=== PATIENT | female | born 1965 | race Caucasian/White ===

== ENCOUNTER 2021-07-16 13:08 | Emergency (ER) | payer MEDICARE, MEDICAID, SELFPAY ==
[2021-07-16 13:26] VITALS: BP 104/74; BP 120/60; PULSE 74; PULSE 77; RESP 18; TEMP 36.1; O2SAT 98; BMI 17.2
--- NOTE | 2021-07-16 13:35 | ED_ITS ---
HPI - General Adult General Chief complaint: General Medical Stated complaint: G-TUBE REPLACEMENT Time Seen by Provider: 07/16/21 13:27 Source: patient History of Present Illness HPI narrative: This is a 55-year-old female with a history of esophageal stricture, was had a G-tube in for some time. The G-tube in some fashion is nonfunctioning and needs to be replaced. The G-tube is still in her stomach but the patient stays that is not working. She states that not walk. She denies any abdominal pain, fever, chest pain, shortness of breath, abdominal pain. Review of Systems Constitutional: Constitutional: Reports as per HPI and Denies fever(s) Gastrointestinal: Gastrointestinal: Denies abdominal pain Neurologic: Denies Sensory deficit (Neuro) [facility] Past Medical History Medical History (Updated 07/16/21 @ 16:46 by Olvin Torres MD) G tube feedings Social History Social History Advance Directives: No Advance Directives Information Provided: Yes Physical Exam Vital Signs: Vital Signs: Last Vital Signs Temp 96.7 F L 07/16/21 16:00 Pulse 72 07/16/21 16:00 Resp 16 07/16/21 16:00 BP 96/62 07/16/21 16:00 Pulse Ox 96 07/16/21 16:00 BMI result Body Mass Index 17.2 Const: General: cooperative, no acute distress and alert Orientation/consciousness: patient oriented x3 HENMT: Head: Yes normal to inspection Eyes: General: appearance normal, both eyes and all related structures Eyelids: Yes eyelids normal Conjunctivae: conjunctivae normal Pupils: Equal, round and reactive pupils present Neck: Neck: Yes normal visual inspection and Yes supple Chest: Chest palpation & inspection: normal inspection of the chest Resp: Effort & Inspection: normal respiratory effort Auscultation: clear to auscultation bilaterally Cardio: Rate: regular rate Rhythm: regular rhythm Heart sounds: S1 normal heart sound present, S2 normal heart sound present, no gallops, no murmurs and no rubs GI: Palpation (GI): Soft to palpation, nontender and Other GI palpation findings present (Non-distended) Auscultation: normal bowel sounds Skin: General skin exam: no rashes or lesions noted Neuro: General: patient oriented x3, no focal motor deficits and CN's II-XI intact bilaterally Cranial nerves: Yes Equal, round and reactive pupils pre sent Cognition (Neuro): normal cognition Motor exam (neuro): 5/5 motor strength present throughout Sensory Exam: No Sensory deficit (Neuro) Extrem: General: Yes normal to inspection and Yes no pedal edema Psych: Appearance: grossly normal Affect: normal affect Procedures Procedure Narrative Procedure Narrative: The patient is 18 Gabonese PEG tube was removed after deflating the balloon, however the fluid that returned was not clear and was likely stomach contents. The tube was removed and the balloon appeared effective. Initially only a 20 Gabonese PEG tube was available. The stoma however was too tight for this to pass. A 16 Gabonese tube was found and was passed with only slight resistance. Confirmation of correct placement was made by insufflation of air and auscultating bubbling of air in the stomach. The patient tolerated the procedure well Discharge Plan Discharge Clinical Impression: Complaint associated with gastric tube Patient Disposition: Home, Self-Care Instructions: How to Use and Care for Your PEG Tube (ED) Additional Instructions: Return for any new or worsened symptoms such as abdominal pain, fluids not going into the gastric tube normally.
[2021-07-16 16:00] VITALS: BP 96/62; PULSE 72; RESP 16; TEMP 35.9; O2SAT 96
--- NOTE | 2021-07-16 17:00 | PC.NURSE ---
#16 g tube placed by , # 18 not avaiklable, pt tolerated well,
[2021-07-16 17:56] VITALS: BP 130/74; PULSE 74; RESP 16; TEMP 36.6; O2SAT 99
== END 2021-07-17 04:25 | disposition home or self-care (01) ==
PROVIDERS: Emergency Provider Emergency Medicine
DX: K94.29 Other complications of gastrostomy (principal); Z79.899 Other long term (current) drug therapy
CPT/HCPCS: 99283; 99284

== ENCOUNTER 2021-09-07 00:26 | Emergency (ER) | payer MEDICARE, MEDICAID, SELFPAY ==
--- NOTE | ~2021-09-07 | XR_ITS ---
EXAMINATION: XR ABDOMEN KUB CLINICAL INDICATION: G-tube check COMPARISON: None TECHNIQUE: AP view of the abdomen. FINDINGS: Gastrostomy tube tip overlies the stomach. Contrast is present throughout the stomach and within a portion of the tubing, in keeping with tube tip location in the stomach. No extraluminal contrast is seen. Bowel gas pattern is nonobstructive. Moderate to large amount of stool is noted. Limited assessment for free air with supine positioning. Included lung bases appear well-aerated. Degenerative changes are noted in the spine. XR/XR KUB IMPRESSION: Findings consistent with gastrostomy tube tip location in the stomach.
[2021-09-07 00:39] VITALS: BP 101/61; BP 96/63; PULSE 66; PULSE 76; RESP 16; TEMP 36.7; O2SAT 95; BMI 39.0
--- NOTE | 2021-09-07 00:50 | ED_ITS ---
HPI - General Adult General Chief complaint: General Medical Stated complaint: Gtube replacement Time Seen by Provider: 09/07/21 00:47 Source: patient Mode of arrival: EMS Limitations: no limitations History of Present Illness HPI narrative: Patient's history of esophageal stricture only can drink liquids has a feeding tube which got clogged and had to be removed by the staff patient has G-tube feeding tube for last 3 years last change of feeding tube was 2 months ago Related Data Allergies Allergy/AdvReac Type Severity Reaction Status Date / Time Sulfa (Sulfonamide AdvReac Unknown Unknown Verified 09/07/21 00:44 Antibiotics) Review of Systems Verdana 4l Review of Systems: Yes all other systems are reviewed and Verdana 4d are negative [facility] Past Medical History Medical History G tube feedings Physical Exam Verdana 4l Vital Signs: Verdana 4d Verdana 4d Vital Signs: Verdana 4d Verdana 4Bd Last Vital Signs Verdana 4d Punch [employer] Setter New 4d Punch Press Setter New 4d Temp 98.1 F 09/07/21 00:39 Punch Press Setter New 4d Pulse 66 09/07/21 00:39 Punch Press Setter New 4d Resp 16 09/07/21 00:39 BP 101/61 09/07/21 00:39 Pulse Ox 95 09/07/21 00:39 BMI result Body Mass Index 39.0 Appearance: Alert. Oriented X3. No acute distress. ENT: Pharynx normal. Oral Mucosa moist Neck: Normal inspection. Neck supple. CVS: Normal heart rate and rhythm. Pulses normal. Respiratory: No respiratory distress. Equal air entry bilateral, no wheezing/rales/rhonchi Abdomen: Soft and nontender. Stoma for G-tube + Bowel sounds are present, Skin: Skin warm and dry. Normal skin color. Normal skin turgor. Neuro: Oriented X 3. Procedures Feeding Tube Replacement Type of Tube: gastrostomy Insertion Site Prior to Procedure: clean Tube Used for Reinsertion: other (G-tube 18 Polish) Polish Tube Size (F): 18 Verification of Placement: KUB and gastrografin injection Patient Tolerated Procedure: no complications Discharge Plan Discharge Clinical Impression: Gastrostomy tube obstruction Patient Disposition: er [facility] Instructions: How to Use and Care for Your PEG Tube (ED) Additional Instructions: Local care as advised Okay to use G-tube
[2021-09-07] MEDS: Diatrizoate Meglumine, Sodium 30 ML SOLUTION PO (01:12)
--- NOTE | 2021-09-07 02:53 | PC.NURSE ---
Patient waited for almost 45 minutes for an ambulance ride back to her nursing facility. Patient gtube fell out and a new gt tube place size 18. Xray confirms placement and patient tolerated the procedure well
== END 2021-09-07 02:57 ==
LOC: HO.ED 01:36
PROVIDERS: Emergency Provider Internal Medicine
DX: K94.23 Gastrostomy malfunction (principal)
CPT/HCPCS: 43762; 74018; 99283; 99284

== ENCOUNTER 2022-07-04 16:52 | Emergency (ER) | payer MEDICARE, MEDICAID, SELFPAY ==
--- NOTE | ~2022-07-04 | XR_ITS ---
EXAMINATION: XR ABDOMEN KUB CLINICAL INDICATION: G-tube replacement. COMPARISON: Abdomen 09/07/2021, 1:04 AM TECHNIQUE: AP view of the abdomen. 5:34 PM. Contrast administered through the G-tube prior radiograph. XR/XR abdomen 1V FINDINGS/IMPRESSION: G- tube catheter within the stomach. Contrast opacifies the stomach. No extravasation of contrast IMPRESSION: 1. G-tube catheter within the stomach. No extravasation of contrast. 2. Multiple loops of dilated small bowel are seen.
--- NOTE | 2022-07-04 17:10 | ED.GENADULT ---
HPI - General Adult General Stated complaint: G-TUBE ISSUE Time Seen by Provider: 07/04/22 17:14 Related Data Allergies Allergy/AdvReac Type Severity Reaction Status Date / Time Sulfa (Sulfonamide AdvReac Unknown Unknown Verified 09/07/21 00:44 Antibiotics) PMFSH Past Medical History Medical History G tube feedings Social History Social History Alcohol intake: unknown Patient Tobacco Use Status: Tobacco use Unknown
[2022-07-04 17:12] VITALS: BP 101/70; PULSE 84; RESP 18; TEMP 37.1; O2SAT 96; BMI 19.3
--- NOTE | 2022-07-04 17:50 | ED_ITS ---
HPI - General Adult General Chief complaint: General Medical Stated complaint: G-TUBE ISSUE Time Seen by Provider: 07/04/22 17:14 Source: patient and EMS Mode of arrival: EMS Limitations: physical limitation History of Present Illness HPI narrative: 56-year-old female residing [facility] presents to the emergency department by EMS for G-tube replacement he is now after her G-tube fell out. She has a past medical history of esophageal stricture and has a G-tube for nighttime feeds for over 3+ years. Patient brought old G-tube to emergency department for inspection. Appears to be intact although balloon is broken. She denies any recent physical complaints such as fever, chills, diarrhea, constipation, chest pain, shortness of breath, or recent illness. Onset (ago): hour(s) (1) Location: abdomen Related Data Allergies Allergy/AdvReac Type Severity Reaction Status Date / Time Sulfa (Sulfonamide AdvReac Unknown Unknown Verified 09/07/21 00:44 Antibiotics) Review of Systems Review of Systems: Yes all other systems are reviewed and are negative Constitutional: Constitutional: Reports no additional constitutional complaints, Denies chills and Denies fever(s) Eyes: Eyes: Reports no additional eye complaints and Denies change in vision ENT: Reports system reviewed and no additional complaints, except as documented, Reports Normal hearing present and Reports dysphagia (hx esophageal stricture, able to swallow fluids, not solid foods.) Cardiovascular: Cardiovascular: Reports no additional cardiovascular complaints, Denies chest pain and Denies dyspnea Respiratory: Respiratory: Reports no additional respiratory complaints, Denies cough and Denies dyspnea Gastrointestinal: Gastrointestinal: Reports no additional gastrointestinal complaints, Denies abdominal pain, Denies melena, Denies hematochezia, Denies change in stool character, Reports dysphagia (hx esophageal stricture, able to swallow fluids, not solid foods.), Denies diarrhea, Denies nausea and Denies vomiting Musculoskeletal: Musculoskeletal: Reports no additional musculoskeletal complaints Integumentary/Breasts: Skin/Breast: Reports system reviewed and no additional complaints, except as docu Neurologic: Reports system reviewed and no additional complaints, except as documented and Reports Normal hearing present [facility] Past Medical History Attestation statement: The following information was validated with the patient. Source: old records reviewed Medical History G tube feedings Social History Social History Alcohol intake: unknown Patient Tobacco Use Status: Tobacco use Unknown Advance Directives: No Advance Directives Information Provided: No Physical Exam ED Vital Signs: Vital Signs - 24 hr 07/04/22 17:12 Temperature 98.7 F Pulse Rate 84 Respiratory Rate 18 Blood Pressure 101/70 Pulse Oximetry 96 Oxygen Delivery Method Room Air BMI result Body Mass Index 19.3 Const General: cooperative, no acute distress, alert and awake Nutritional Appearance: average body habitus Orientation/consciousness: patient oriented x3 Limitations: physical limitations HENMT Head: Yes normal to inspection and Yes atraumatic Ears: hearing grossly normal bilaterally and external ears normal General nose exam: Normal external nose present Face and sinus: Yes normal facial exam Mouth: Normal oral and palatal mucosa present Eyes General: appearance normal, both eyes and all related structures Alignment and Position: alignment normal Periorbital: periorbital findings normal Eyelids: Yes eyelids normal Conjunctivae: conjunctivae normal Sclerae: sclerae normal Pupils: Equal, round and reactive pupils present EOM: EOMs intact bilaterally Neck Neck: Yes normal visual inspection and Yes full ROM Chest Chest palpation & inspection: normal inspection of the chest Resp Effort & Inspection: normal respiratory effort and able to speak in complete sentences Auscultation: clear to auscultation bilaterally Cardio Rate: regular rate Rhythm: regular rhythm GI Inspection: Yes other (G-tube stoma present) Palpation (GI): Soft to palpation and nontender Auscultation: normal bowel sounds Skin General skin exam: no rashes or lesions noted Neuro General: patient oriented x3 Cranial nerves: Yes Equal, round and reactive pupils present and Yes Normal hearing present Cognition (Neuro): normal cognition Extrem General: Yes normal to inspection and Yes capillary refill normal Psych Appearance: grossly normal Mental Status: mental status grossly normal Speech and movement: Normal speech and movement present Affect: normal affect Attitude: cooperative Procedures Procedure Narrative Procedure Narrative: G-tube replacement Abdominal stoma cleansed with Betadine. 18 fr. LEIGHA G-tube inserted with slight resistance. Balloon inflated to 7 mL with normal saline. Gastrografin injected into G-tube and abdominal x-ray completed. Patient tolerated without incident. Medical Decision Making MDM Narrative Medical decision making narrative: 56-year-old female presents from a long-term care facility for replacement of G- tube after fell earlier today. 18 fr. G-tube inserted without issue. Abdominal x-ray consistent with gastrostomy tube location in the stomach. G-tube okay for immediate use. Imaging Data Abdominal x-ray: My impression: G-tube tip correctly located in stomach. Radiologist's impression: EXAMINATION: XR ABDOMEN KUB CLINICAL INDICATION: G-tube check? COMPARISON: None? TECHNIQUE: AP view of the abdomen. FINDINGS: Gastrostomy tube tip overlies the stomach. Contrast is present throughout the stomach and within a portion of the tubing, in keeping with tube tip location in the stomach. No extraluminal contrast is seen. Bowel gas pattern is nonobstructive. Moderate to large amount of stool is noted. Limited assessment for free air with supine positioning. Included lung bases appear well-aerated. Degenerative changes are noted in the spine. XR/XR KUB IMPRESSION: Findings consistent with gastrostomy tube tip location in the stomach. ? Dictated By: PATRICIA MEI MD Signed By: <Electronically signed by PATRICIA MEI MD in OV> 09/07/21 0140 DD/ 0112 TD/TT:? Senior Budget Analyst: TH Discharge Plan Discharge Clinical Impression: PEG (percutaneous endoscopic gastrostomy) adjustment/replacement/removal Patient Disposition: Xfer LTC Instructions: How to Use and Care for Your PEG Tube (ED) Additional Instructions: 18 fr G-tube replaced today. Abdominal x-ray completed and G-tube cleared for immediate use. Print Language: Dominican
== END 2022-07-04 19:40 ==
PROVIDERS: Emergency Provider Internal Medicine; PCP Internal Medicine
DX: Z46.59 Encounter for fitting and adjustment of other gastrointestinal appliance and device (principal)
CPT/HCPCS: 43762; 74018; 99282; 99283; 99285

== ENCOUNTER 2023-03-11 23:11 | Emergency (ER) | payer MEDICARE, MEDICAID, SELFPAY ==
--- NOTE | ~2023-03-11 | XR_ITS ---
EXAMINATION: XR ABDOMEN KUB CLINICAL INDICATION: G-tube check COMPARISON: 07/04/2022 TECHNIQUE: AP view of the abdomen. FINDINGS: Gastrostomy tube projects over the gastric body. Contrast injected through the gastrostomy tube opacifies the stomach and collects in the gastric fundus. No extraluminal contrast is identified. Nonobstructive bowel gas pattern. Moderate stool throughout the left colon. No acute osseous abnormalities. XR/XR KUB IMPRESSION: * Gastrostomy tube projects over the gastric body. No evidence of contrast extravasation * Nonobstructive bowel gas pattern. * Moderate stool throughout the left colon.
[2023-03-11 23:16] VITALS: BP 110/74; PULSE 91; O2SAT 96
[2023-03-11 23:42] VITALS: BP 110/74; PULSE 91; RESP 16; O2SAT 96; BMI 20.5
--- NOTE | 2023-03-11 23:53 | ED_ITS ---
HPI - General Adult General Chief complaint: Abdominal Pain Stated complaint: g tube Time Seen by Provider: 03/11/23 23:53 Source: patient, EMS and RN notes reviewed Mode of arrival: EMS Limitations: no limitations History of Present Illness HPI narrative: Patient with long-standing G-tube came from half-way as it was clock was placed about more than a month ago no vomiting no fever no abdominal distention Related Data Allergies Allergy/AdvReac Type Severity Reaction Status Date / Time Sulfa (Sulfonamide AdvReac Unknown Unknown Verified 09/07/21 00:44 Antibiotics) Review of Systems Review of Systems: Yes all other systems are reviewed and are negative [facility] Past Medical History Medical History G tube feedings Social History Social History Alcohol intake: unknown Patient Tobacco Use Status: Tobacco use Unknown Advance Directives: No Advance Directives Information Provided: Yes Physical Exam ED Vital Signs: Vital Signs - 24 hr 03/11/23 23:42 Pulse Rate 91 Respiratory Rate 16 Blood Pressure 110/74 Pulse Oximetry 96 Oxygen Delivery Method Room Air BMI result Body Mass Index 20.5 Appearance: Alert. Oriented X3. No acute distress. ENT: Pharynx normal. Oral Mucosa moist Neck: Normal inspection. Neck supple. CVS: Normal heart rate and rhythm. Pulses normal. Respiratory: No respiratory distress. Equal air entry bilateral, Abdomen: Soft and nontender. G-tube in place clogged, Bowel sounds are present, no mass palpable, no CVA tenderness Skin: Skin warm and dry. Normal skin color. Normal skin turgor. Extremities: No lower extremity edema. No calf tenderness Neuro: Oriented X 3. No motor deficit. Medications Administered Discontinued Medications Generic Name Dose Route Start Last Admin Trade Name Freq PRN Reason Stop Dose Admin Diatrizoate Meglum/Diatrizoate Sod 30 ml 03/12/23 01:06 03/12/23 01:06 Diatrizoate Meglumine, Sodium 30 Ml Solution PO 03/12/23 01:07 30 ml ONCE ONE Administration Procedures Feeding Tube Replacement Type of Tube: gastrostomy Insertion Site Prior to Procedure: clean Tube Used for Reinsertion: Bard Guamanian Tube Size (F): 22 Balloon size (mL): 10 Verification of Placement: KUB and gastrografin injection Tube Secured by: tape/dressing Patient Tolerated Procedure: well Medical Decision Making Medical Decision Making MDM Narrative: 22 Guamanian G-tube was replaced confirmed by KUB x-ray which admission back to nursing Discharge Plan Discharge Clinical Impression: G tube feedings Patient Disposition: Xfer SNF Transfer Details: 22 Guamanian G-tube was placed and is okay to use Instructions: How to Use and Care for Your PEG Tube (ED) Additional Instructions: Okay to use G-tube
[2023-03-12] MEDS: Diatrizoate Meglumine, Sodium 30 ML SOLUTION PO (01:06)
--- NOTE | 2023-03-12 01:22 | MHC.EDTECH ---
call out to eliel at 0121 to book transport for pt back to SNF, estimated eta given was 0330
--- NOTE | 2023-03-12 02:11 | PC.NURSE ---
Gave report to [facility], pt waiting for transport at this time. ETA 3:30
== END 2023-03-12 03:43 | disposition skilled nursing facility (03) ==
PROVIDERS: Emergency Provider Internal Medicine
DX: K94.23 Gastrostomy malfunction (principal)
CPT/HCPCS: 74018; 99284

== ENCOUNTER 2023-03-12 22:49 | Inpatient (IN) | payer MEDICARE, MEDICAID, SELFPAY ==
--- NOTE | ~2023-03-12 | FL_ITS ---
EXAMINATION: FL BARIUM SWALLOW CLINICAL INFORMATION: Dysphagia. Esophageal stricture. COMPARISON: Previous chest CT from earlier the same day TECHNIQUE: Limited single contrast barium swallow was performed using thin and thick barium with the patient in semiupright position. Barium was also injected through the G-tube. Fluoroscopy time: 1.1 minutes DAP: 2.8 Gycm2 Images: 12 FINDINGS: There is severe mucosal irregularity of the proximal and mid esophagus. The proximal and mid thoracic esophagus is dilated. The distal thoracic esophagus appears narrowed questionable for a stricture. Exam is limited as the patient aspirated into the left lower lobe while drinking liquid barium and exam was discontinued. There is underfilling of the proximal stomach and is difficult to exclude a mass in this region. The G-tube was injected with barium. The G tube is in the distal stomach. No leak. FL/FL barium swallow IMPRESSION: Limited exam. Aspiration. Mucosal irregularity of the proximal and mid thoracic esophagus and dilatation. Stricture of the distal thoracic esophagus. Underfilling of the proximal stomach. It is difficult to exclude a proximal stomach mass. G-tube in the distal stomach.
--- NOTE | ~2023-03-12 | CT_ITS ---
EXAMINATION CT CHEST, ABDOMEN AND PELVIS WITH CONTRAST CLINICAL INFORMATION: Esophageal obstruction. Nausea and vomiting. Epigastric pain. COMPARISON: None. TECHNIQUE: Multidetector volumetric CT imaging of the chest, abdomen and pelvis was obtained after the administration of 85 mL of intravenous Omnipaque 350 without immediate adverse reactions. Coronal and sagittal reformats were reviewed. This CT examination was performed using dose optimization techniques as appropriate, variously including the following: *Automated exposure control *Adjustment of mA and/or kV according to patient size (this includes techniques or standardized protocols for targeted exams where dose is matched to indication/reason for exam; i.e. extremities or head) *Use of iterative reconstruction technique DLP: 536 mGy-cm. FINDINGS: CHEST LUNGS/PLEURA: Mild emphysema. Diffuse mild cylindrical bronchiectasis. There are upper lobe predominant patchy and in some cases nodular opacities bilaterally. There is no pleural effusion. No pleural mass or thickening. MEDIASTINUM/DAVINA: Normal heart size. No pericardial effusion. Great vessels normal caliber. Coronary calcifications present. No mediastinal or hilar lymphadenopathy. Small sliding-type hiatal hernia, above which the esophagus shows marked submucosal edema and accompanying mucosal hyperemia throughout its distal third. The proximal two thirds of the esophagus is patulous/moderately dilated. CHEST WALL/AXILLA: Unremarkable. ABDOMEN/PELVIS HEPATOBILIARY: Liver normal in size, contour and morphology. No suspicious lesions. No intra or extrahepatic biliary dilation. Gallbladder unremarkable. PANCREAS: Unremarkable. SPLEEN: Unremarkable. ADRENAL GLANDS: Unremarkable. KIDNEYS, URETERS AND BLADDER: Kidneys normal in size, axis and morphology demonstrating symmetric enhancement. No hydronephrosis or urinary calculi. Ureters normal in course and caliber. Bladder grossly unremarkable.. GASTROINTESTINAL TRACT: Gastrostomy tube within the gastric antrum. No intestinal obstruction or inflammation. Normal appendix. Previously administered contrast present throughout the colon. PELVIC VISCERA: Uterus and adnexa unremarkable. LYMPH NODES: No lymphadenopathy. PERITONEUM/BODY WALL: Unremarkable. VASCULAR STRUCTURES: Aorta is atherosclerotic but normal caliber. Patent vascular structures. OSSEOUS STRUCTURES No acute or suspicious osseous abnormalities. Mild retrolisthesis of L1 over L2 with accompanying near complete obliteration of the disc space and diffuse disc bulge. This leads to at least moderate bilateral foraminal narrowing at L1-L2, worse on the right. Mild loss of disc space height at L5-S1 accompanied by diffuse disc bulge. Moderate facet arthropathy throughout the lumbar spine. CT/CT abdomen pelvis w IV con IMPRESSION: CHEST: * Small sliding-type hiatal hernia with marked submucosal edema and mucosal hyperemia throughout the distal third of the esophagus compatible with severe esophagitis. This severe edema within the distal esophagus may be resulting in partial obstruction. An esophageal stricture could also be contributing. Recommend GI consultation and esophagram for further evaluation. * Upper lobe predominant patchy and in some cases nodular airspace opacities bilaterally, likely infectious/inflammatory in etiology and of indeterminate activity / chronology. Given the somewhat nodular appearance of some of the opacities, consider a follow-up CT chest in 3-6 months for reevaluation. * Mild emphysema and diffuse mild cylindrical bronchiectasis/chronic airways disease. ABDOMEN/PELVIS: * No acute findings within the abdomen or pelvis. * Gastrostomy tube within the gastric antrum. * No intestinal obstruction or inflammation. * Coronary calcifications. * Degenerative changes of the lumbar spine as described, most pronounced at L1-L2 where there is at least moderate bilateral foraminal narrowing, worse on the right.
--- NOTE | 2023-03-12 23:06 | ECG_ITS ---
Test Reason : HYPERTENSION Blood Pressure : / mmHG Vent. Rate : 102 BPM Atrial Rate : 102 BPM P-R Int : 120 ms QRS Dur : 074 ms QT Int : 354 ms P-R-T Axes : 066 241 048 degrees QTc Int : 461 ms Sinus tachycardia Right superior axis deviation Nonspecific ST changes Abnormal ECG No previous ECGs available Referred By: Susan Gale Electronically Signed By:Ambrose Boggs
[2023-03-12 23:20] VITALS: BP 135/99; PULSE 90; RESP 14; TEMP 36.9; O2SAT 97
[2023-03-12 23:21] VITALS: BP 110/78; PULSE 110; O2SAT 99; BMI 21.0
--- NOTE | 2023-03-12 23:40 | ED.GENADULT ---
HPI - General Adult General Chief complaint: General Medical Stated complaint: vomiting Time Seen by Provider: 03/12/23 23:05 Source: patient, EMS and other Mode of arrival: EMS History of Present Illness HPI narrative: 57-year-old female who arrives via EMS from [facility] reporting hyperemesis for over a day now and then noted to have black tarry emesis. Patient does have a G-tube in place and states that sometimes she gets and informed me that she is able to have liquids, however when I reviewed the paperwork from the facility patient has a noted esophageal obstruction. Related Data Allergies Allergy/AdvReac Type Severity Reaction Status Date / Time Sulfa (Sulfonamide AdvReac Unknown Unknown Verified 09/07/21 00:44 Antibiotics) Review of Systems Review of Systems: Pertinent positives and negatives as stated in [facility] Past Medical History Source: nursing notes reviewed Medical History G tube feedings Social History Social History Alcohol intake: never Patient Tobacco Use Status: Tobacco use Unknown Smoked in Last 30 Days: No Use of substances other than those prescribed or required for medical reasons: No Advance Directives: No Advance Directives Information Provided: Yes Patient : No Physical Exam ED Vital Signs: Vital Signs - 24 hr 03/12/23 23:20 03/13/23 02:28 Temperature 98.4 F Pulse Rate 90 69 Respiratory Rate 14 12 Blood Pressure 135/99 H 143/70 H Pulse Oximetry 97 99 Oxygen Delivery Method Room Air Room Air BMI result Body Mass Index 21.0 VITAL SIGNS: Reviewed. GENERAL: Cachectic, chronically ill, in no acute distress. HEAD: Normocephalic/atraumatic EYES: PERRLA, EOMI EARS: Ext canals without abnormality NOSE: Nares patent bilateral OROPHARYNX: no oral lesions noted, posterior pharynx clear NECK: Supple, no adenopathy LUNGS: Normal breath sounds. No adventitious sounds or accessory muscle use. SpO2<97> CARDIOVASCULAR: Regular rate and rhythm without noted murmurs ABDOMEN: Soft, non-tender, non-distended with bowel sounds, G-tube noted to epigastric. MUSCULOSKELETAL: No tenderness, deformities, or effusions noted on gross inspection. EXTREMITIES: No cyanosis, clubbing or edema. SKIN: Inspection of the skin reveals no rashes NEUROLOGIC: Alert and oriented x 3. Left-sided residual deficits at baseline Medications Administered Discontinued Medications Generic Name Dose Route Start Last Admin Trade Name Amada PRN Reason Stop Dose Admin Sodium Chloride 1,000 mls @ 999 mls/hr 03/13/23 01:00 03/13/23 01:44 Ns IV 03/13/23 02:00 999 mls/hr .Q1H1M DEANNA Administration Piperacillin Sod/Tazobactam 50 mls @ 100 mls/hr 03/13/23 00:54 03/13/23 02:34 Sod 3.375 gm/ Sodium Chloride IV 03/13/23 01:23 Infused ONCE ONE Infusion Iohexol 85 ml 03/13/23 01:01 03/13/23 01:02 Iohexol 350 Mg/Ml 100 Ml Infus..Btl IV 03/13/23 01:02 85 ml ONCE ONE Administration Ondansetron HCl 4 mg 03/13/23 00:38 03/13/23 00:43 Ondansetron Hcl 4 Mg/2 Ml Vial IVPUSH 03/13/23 00:39 4 mg ONCE ONE Administration Pantoprazole Sodium 80 mg 03/13/23 02:03 03/13/23 02:35 Pantoprazole Sodium 40 Mg/10 Ml Vial IVPUSH 03/13/23 02:04 80 mg ONCE ONE Administration Medical Decision Making Medical Decision Making MDM Narrative: 57-year-old female with history and clinical presentation of inappropriate consumption of oral intake that is resulted in multiple episodes of nausea and vomiting likely secondary to known esophageal obstruction. There is possibility esophageal and/or gastric irritation will evaluate for possible upper GI bleed. 0130: I suspect infection, lactic acid/blood cultures/Zosyn ordered. I reviewed all investigations to include requested imaging studies from [facility]. Hematologic indices are significant for leukocytosis and left shift but no anemia and there is a thrombocytosis likely reflective of inflammatory process ongoing. Given the fact the patient has continued to engage in oral intake suspect that these are aspiration in nature. Coagulation studies are grossly within normal limits. Chemistry indices are negative for electrolyte abnormalities and there is no JUDY, alkaline phosphatase is mildly elevated but otherwise troponin is undetectable. Patient received 80 mg of Protonix, stool guaiac is negative, she continues to have vomiting of dark colored liquid but is not tachycardic or hypotensive. Urinalysis is negative for UTI. CT chest bilateral upper lobe opacities, otherwise my interpretation is in agreement with radiology's impression. CT abdomen/pelvis no evidence for obstruction otherwise my interpretation is in agreement with radiology's impression. 0252: I discussed case with inpatient hospitalist who accepts admission. Differential Diagnosis Differential Diagnoses: The differential diagnosis associated with the presentation includes Please see the discussion above Admission/Observation Consideration of admission/observation: Escalation of care including admission/observation considered Please see the discussion above Consult Healthcare Provider Management of the patient was discussed with: Hospitalist Please see the discussion above Lab Data MDM Lab Attestation statement: I reviewed the patient's lab results. Please see the discussion above 03/13/23 00:02 03/13/23 00:02 Labs: Lab Results 03/13/23 03/13/23 03/13/23 Range/Units 00:02 00:02 00:02 WBC 18.0 H (4.8-10.8) X10*3/uL RBC 5.15 (4.20-5.50) X10*6/uL Hgb 13.1 (12.0-16.0) g/dl Hct 41.2 (37.0-47.0) % MCV 80.0 (80.0-98.0) fL MCH 25.4 L (27.0-33.0) pg MCHC 31.8 (31.0-35.0) g/dl RDW 17.4 H (11.0-16.0) % Plt Count 633 H (160-400) X10*3/uL MPV 9.7 (9.4-12.3) fL Immature Gran % (Auto) 0.4 (0.0-0.4) % Neut % (Auto) 88.4 H (45-73) % Lymph % (Auto) 7.2 L (20-40) % [place] % (Auto) 3.7 (2-11) % Eos % (Auto) 0.0 (0-4) % Baso % (Auto) 0.3 (0-2) % Lymph # (Auto) 1.3 (1.2-4.9) X10*3/uL [place] # (Auto) 0.7 (0.1-1.2) X10*3/uL Eos # (Auto) 0.0 (0.0-0.4) X10*3/uL Baso # (Auto) 0.1 (0.0-0.2) X10*3/uL Abs Immat Gran (auto) 0.08 H (0.00-0.03) X10*3/uL Absolute Neuts (auto) 15.9 H (2.0-8.3) x10*3/uL Absolute Nucleated RBC 0.000 (0.0-0.012) X10*3/uL Nucleated RBC % (auto) 0.0 (0.0-0.2) /100WBC PT (11.1-13.3) SEC INR (0.9-1.1) Sodium 145 (135-145) mmol/L Potassium 3.9 (3.3-5.1) mmol/L Chloride 106 (96-108) mmol/L Carbon Dioxide 22 (22-29) mmol/L Anion Gap 21 H (12-20) BUN 19 H (9-16) mg/dL Creatinine 0.78 (0.5-1.4) mg/dL Estim Creat Clear Calc 61.4 Estimated GFR > 60 Random Glucose 131 H (60-115) mg/dL Lactic Acid (0.5-2.0) mmol/L Calcium 10.4 H (8.4-10.2) mg/dL Total Bilirubin 0.2 (0.0-1.0) mg/dL AST 27 (5-31) U/L ALT 23 (0-31) U/L Alkaline Phosphatase 135 H (39-117) U/L Troponin I High Sens < 2.7 (<3.5-17.0) ng/L Total Protein 8.3 H (6.5-8.0) g/dL Albumin 4.7 (3.5-5.0) g/dL Urine Color Urine Appearance Urine pH (5.0-9.0) Ur Specific Peculiar (1.005-1.025) Urine Protein (Neg-Trace) mg/dL Urine Glucose (UA) (Negative) mg/dL Urine Ketones (Negative) mg/dL Urine Blood (Negative) Urine Nitrite (Negative) Ur Leukocyte Esterase (Negative) Stool Occult Blood (NEGATIVE) 03/13/23 03/13/23 03/13/23 Range/Units 00:02 01:38 02:16 WBC (4.8-10.8) X10*3/uL RBC (4.20-5.50) X10*6/uL Hgb (12.0-16.0) g/dl Hct (37.0-47.0) % MCV (80.0-98.0) fL MCH (27.0-33.0) pg MCHC (31.0-35.0) g/dl RDW (11.0-16.0) % Plt Count (160-400) X10*3/uL MPV (9.4-12.3) fL Immature Gran % (Auto) (0.0-0.4) % Neut % (Auto) (45-73) % Lymph % (Auto) (20-40) % [place] % (Auto) (2-11) % Eos % (Auto) (0-4) % Baso % (Auto) (0-2) % Lymph # (Auto) (1.2-4.9) X10*3/uL [place] # (Auto) (0.1-1.2) X10*3/uL Eos # (Auto) (0.0-0.4) X10*3/uL Baso # (Auto) (0.0-0.2) X10*3/uL Abs Immat Gran (auto) (0.00-0.03) X10*3/uL Absolute Neuts (auto) (2.0-8.3) x10*3/uL Absolute Nucleated RBC (0.0-0.012) X10*3/uL Nucleated RBC % (auto) (0.0-0.2) /100WBC PT 12.4 (11.1-13.3) SEC INR 1.0 (0.9-1.1) Sodium (135-145) mmol/L Potassium (3.3-5.1) mmol/L Chloride (96-108) mmol/L Carbon Dioxide (22-29) mmol/L Anion Gap (12-20) BUN (9-16) mg/dL Creatinine (0.5-1.4) mg/dL Estim Creat Clear Calc Estimated GFR Random Glucose (60-115) mg/dL Lactic Acid 1.6 (0.5-2.0) mmol/L Calcium (8.4-10.2) mg/dL Total Bilirubin (0.0-1.0) mg/dL AST (5-31) U/L ALT (0-31) U/L Alkaline Phosphatase (39-117) U/L Troponin I High Sens (<3.5-17.0) ng/L Total Protein (6.5-8.0) g/dL Albumin (3.5-5.0) g/dL Urine Color Urine Appearance Urine pH (5.0-9.0) Ur Specific Peculiar (1.005-1.025) Urine Protein (Neg-Trace) mg/dL Urine Glucose (UA) (Negative) mg/dL Urine Ketones (Negative) mg/dL Urine Blood (Negative) Urine Nitrite (Negative) Ur Leukocyte Esterase (Negative) Stool Occult Blood NEGATIVE (NEGATIVE) 03/13/23 Range/Units 02:28 WBC (4.8-10.8) X10*3/uL RBC (4.20-5.50) X10*6/uL Hgb (12.0-16.0) g/dl Hct (37.0-47.0) % MCV (80.0-98.0) fL MCH (27.0-33.0) pg MCHC (31.0-35.0) g/dl RDW (11.0-16.0) % Plt Count (160-400) X10*3/uL MPV (9.4-12.3) fL Immature Gran % (Auto) (0.0-0.4) % Neut % (Auto) (45-73) % Lymph % (Auto) (20-40) % [place] % (Auto) (2-11) % Eos % (Auto) (0-4) % Baso % (Auto) (0-2) % Lymph # (Auto) (1.2-4.9) X10*3/uL [place] # (Auto) (0.1-1.2) X10*3/uL Eos # (Auto) (0.0-0.4) X10*3/uL Baso # (Auto) (0.0-0.2) X10*3/uL Abs Immat Gran (auto) (0.00-0.03) X10*3/uL Absolute Neuts (auto) (2.0-8.3) x10*3/uL Absolute Nucleated RBC (0.0-0.012) X10*3/uL Nucleated RBC % (auto) (0.0-0.2) /100WBC PT (11.1-13.3) SEC INR (0.9-1.1) Sodium (135-145) mmol/L Potassium (3.3-5.1) mmol/L Chloride (96-108) mmol/L Carbon Dioxide (22-29) mmol/L Anion Gap (12-20) BUN (9-16) mg/dL Creatinine (0.5-1.4) mg/dL Estim Creat Clear Calc Estimated GFR Random Glucose (60-115) mg/dL Lactic Acid (0.5-2.0) mmol/L Calcium (8.4-10.2) mg/dL Total Bilirubin (0.0-1.0) mg/dL AST (5-31) U/L ALT (0-31) U/L Alkaline Phosphatase (39-117) U/L Troponin I High Sens (<3.5-17.0) ng/L Total Protein (6.5-8.0) g/dL Albumin (3.5-5.0) g/dL Urine Color Yellow Urine Appearance Turbid Urine pH 8.5 (5.0-9.0) Ur Specific Peculiar >= 1.030 H (1.005-1.025) Urine Protein 30 (1+) H (Neg-Trace) mg/dL Urine Glucose (UA) Negative (Negative) mg/dL Urine Ketones Negative (Negative) mg/dL Urine Blood Negative (Negative) Urine Nitrite Negative (Negative) Ur Leukocyte Esterase Negative (Negative) Stool Occult Blood (NEGATIVE) Independent Interpretation I performed an independent interpretation of an: EKG Interpretation: Sinus tachycardia, HR-102, no STEMI, IL/QRS/QTC is within normal limits. Radiology Impression Discussion of test interpretation with radiology: I have reviewed the radiologist's reading. Radiologist Impression: Please see the discussion above External Record Review External record reviewed: Other Imaging records from [facility] Critical Care Time Critical Care Time Critical Care Time: Yes Total Critical Care Time: 30 Attestation: I personally attest to this time spent taking care of the patient. Discharge Plan Discharge Clinical Impression: Aspiration pneumonia, Mass of esophagus Patient Disposition: Admitted As Inpatient
[2023-03-13 00:07] LABS: MANUAL DIFF FLAG NO
[2023-03-13 00:08] LABS: Basophils Absolute Auto 0.1 X10*3/uL (0.0-0.2); Basophils Percent Auto 0.3 % (0-2); Hematocrit 41.2 % (37.0-47.0); Hemoglobin 13.1 g/dl (12.0-16.0); Imm Gran Abs Auto 0.08 X10*3/uL (0.00-0.03); Imm Gran Pct Auto 0.4 % (0.0-0.4); Lymphocytes Absolute Auto 1.3 X10*3/uL (1.2-4.9); Lymphocytes Percent Auto 7.2 % (20-40); Mean Corpuscular HGB Conc 31.8 g/dl (31.0-35.0); Mean Corpuscular Hemoglobin 25.4 pg (27.0-33.0); Mean Platelet Volume 9.7 fL (9.4-12.3); Monocytes Absolute Auto 0.7 X10*3/uL (0.1-1.2); Monocytes Percent Auto 3.7 % (2-11); Neutrophils Absolute Auto 15.9 x10*3/uL (2.0-8.3); Neutrophils Percent Auto 88.4 % (45-73); Platelet Count 633 X10*3/uL (160-400); Red Blood Count 5.15 X10*6/uL (4.20-5.50); Red Cell Distribution Width 17.4 % (11.0-16.0)
[2023-03-13 00:17] LABS: Prothrombin Time 12.4 SEC (11.1-13.3)
[2023-03-13 00:24] LABS: Alanine Aminotransferase 23 U/L (0-31); Albumin Level 4.7 g/dL (3.5-5.0); Alkaline Phosphatase 135 U/L (39-117); Anion Gap 21 (12-20); Aspartate Amino Transferase 27 U/L (5-31); Bilirubin Total 0.2 mg/dL (0.0-1.0); Blood Urea Nitrogen 19 mg/dL (9-16); Calcium 10.4 mg/dL (8.4-10.2); Carbon Dioxide 22 mmol/L (22-29); Chloride 106 mmol/L (96-108); Creatinine Clr Calc Pharmacy 61.4; Estimated Glomerular Filt Rate > 60; Glucose Random 131 mg/dL (60-115); Potassium 3.9 mmol/L (3.3-5.1); Sodium 145 mmol/L (135-145); Total Protein 8.3 g/dL (6.5-8.0)
[2023-03-13 00:31] LABS: Troponin-I High Sensitivity < 2.7 ng/L (<3.5-17.0)
[2023-03-13] MEDS: ondansetron HCL 4 MG/2 ML VIAL IVPUSH ×3 (00:43→21:05)
[2023-03-13] MEDS: iohexoL 350 MG/ML 100 ML INFUS..BTL 85 ML IV (01:02)
[2023-03-13] MEDS: 0.9 % Sodium Chloride 1,000 ML 999 ML IV (01:44)
[2023-03-13] MEDS: Piperacillin Sodium/Tazobactam 3.375 GM in 0.9 % Sodium Chloride 50 ML IV (01:44)
[2023-03-13 01:56] LABS: Lactic Acid 1.6 mmol/L (0.5-2.0)
[2023-03-13 02:21] LABS: OBS Int Ctl Valid YES; OBS1 NEGATIVE (NEGATIVE)
[2023-03-13 02:28] VITALS: BP 143/70; PULSE 69; RESP 12; O2SAT 99
[2023-03-13 02:35] LABS: Appearance Urine Turbid; Color Urine Yellow; Glucose Urine UA Negative (Negative); Leukocyte Esterase Urine Negative (Negative); Nitrite Urine Negative (Negative); PH 8.5 (5.0-9.0); Specific Gravity - Urine >= 1.030 (1.005-1.025); UMIC TRIGGER UACC YES; Urine Blood Negative (Negative); Urine Ketones Negative (Negative); Urine Protein 30 (1+) mg/dL (Neg-Trace)
[2023-03-13] MEDS: Pantoprazole Sodium 40 MG/10 ML VIAL 80 MG IVPUSH (02:35)
[2023-03-13 02:45] LABS: Bacteria Urine None Seen (None Seen); Hyaline Casts Urine 0-2 /LPF (0-2); Squamous Epithelial Cell Urine 0-2 /HPF (0-2); WBC Urine 0-5 /HPF (0-5)
--- NOTE | 2023-03-13 03:17 | PM.IMHP ---
History of Present Illness Date of Service: 03/13/23 Chief Complaint: Vomiting This is a 57-year-old female with pertinent history of CVA with residual left-sided hemiparesis, dysphagia due to CVA, gastroesophageal reflux disease, mood disorder who was sent to the emergency department for evaluation of multiple episodes of vomiting. Patient states she had multiple episodes of vomiting on the day of presentation, too many to count. Patient states her last few episodes were black in color. Denies shahzad blood in vomitus. She denies fever, chills, cough. Does not take anything by mouth. Has a G-tube for feeds. No chest discomfort, palpitations, shortness of breath, abdominal pain, changes in urinary or bowel habits. In the emergency department, imaging with severe esophagitis with possible esophageal stricture Review of Systems Constitutional: Constitutional: Reports no additional constitutional complaints Cardiovascular: Cardiovascular: Reports no additional cardiovascular complaints Respiratory: Respiratory: Reports no additional respiratory complaints Gastrointestinal: Gastrointestinal: Reports vomiting Genitourinary: Genitourinary: Reports no additional female genitourinary complaints [facility] Medical History CVA (cerebral vascular accident) Dysphagia G tube feedings GERD (gastroesophageal reflux disease) Hemiparesis affecting left side as late effect of cerebrovascular accident Mood disorder Pertinent family history: No family history of early CAD Social History Alcohol intake: never Patient Tobacco Use Status: Tobacco use Unknown Smoked in Last 30 Days: No Use of substances other than those prescribed or required for medical reasons: No Advance Directives: No Advance Directives Information Provided: Yes Patient : No Meds Allergies Allergy/AdvReac Type Severity Reaction Status Date / Time Sulfa (Sulfonamide AdvReac Unknown Unknown Verified 09/07/21 00:44 Antibiotics) Active Medications: Current Medications Vancomycin HCl 1,250 mg/ (Sodium Chloride) 250 mls @ 166.667 mls/hr IV ONCE ONE; Protocol Stop: 03/13/23 04:44 Pharmacy Consult (Consult Rx Vancomycin Dosing) 1 each MISCELLANE DAILY PRN PRN Reason: Consult order Physical Exam Vital Signs and Narrative: Vital Signs: Last Vital Signs Temp 98.4 F 03/12/23 23:20 Pulse 69 03/13/23 02:28 Resp 12 03/13/23 02:28 BP 143/70 H 03/13/23 02:28 Pulse Ox 99 03/13/23 02:28 O2 Del Method Room Air 03/13/23 02:28 BMI result Body Mass Index 21.0 Middle-aged female lying in bed in no distress Neck supple Regular rate and rhythm, S1-S2 heard Decreased breath sounds at bases with mild crackles Abdomen soft nontender, no guarding, no rigidity, G-tube in place Patient is awake, alert and oriented to self, place, time and person ; left-sided hemiparesis present Psych: Normal mood Results Labs 03/13/23 00:02 03/13/23 00:02 Labs: Laboratory Results - last 24 hr 03/13/23 03/13/23 03/13/23 00:02 00:02 00:02 MCV 80.0 MCH 25.4 L MCHC 31.8 RDW 17.4 H Plt Count 633 H MPV 9.7 Immature Gran % (Auto) 0.4 Neut % (Auto) 88.4 H Lymph % (Auto) 7.2 L Petroleum % (Auto) 3.7 Eos % (Auto) 0.0 Baso % (Auto) 0.3 Lymph # (Auto) 1.3 Petroleum # (Auto) 0.7 Eos # (Auto) 0.0 Baso # (Auto) 0.1 Abs Immat Gran (auto) 0.08 H Absolute Neuts (auto) 15.9 H Absolute Nucleated RBC 0.000 Nucleated RBC % (auto) 0.0 PT 12.4 INR 1.0 Anion Gap 21 H Estim Creat Clear Calc 61.4 Estimated GFR > 60 Random Glucose 131 H Lactic Acid Calcium 10.4 H Total Bilirubin 0.2 AST 27 ALT 23 Alkaline Phosphatase 135 H Total Protein 8.3 H Albumin 4.7 Urine Color Urine Appearance Urine pH Ur Specific [place] Urine Protein Urine Glucose (UA) Urine Ketones Urine Blood Urine Nitrite Ur Leukocyte Esterase Urine RBC Urine WBC Ur Squamous Epith Cells Urine Bacteria Hyaline Casts Stool Occult Blood 03/13/23 03/13/23 03/13/23 01:38 02:16 02:28 MCV MCH MCHC RDW Plt Count MPV Immature Gran % (Auto) Neut % (Auto) Lymph % (Auto) Petroleum % (Auto) Eos % (Auto) Baso % (Auto) Lymph # (Auto) Petroleum # (Auto) Eos # (Auto) Baso # (Auto) Abs Immat Gran (auto) Absolute Neuts (auto) Absolute Nucleated RBC Nucleated RBC % (auto) PT INR Anion Gap Estim Creat Clear Calc Estimated GFR Random Glucose Lactic Acid 1.6 Calcium Total Bilirubin AST ALT Alkaline Phosphatase Total Protein Albumin Urine Color Yellow Urine Appearance Turbid Urine pH 8.5 Ur Specific [place] >= 1.030 H Urine Protein 30 (1+) H Urine Glucose (UA) Negative Urine Ketones Negative Urine Blood Negative Urine Nitrite Negative Ur Leukocyte Esterase Negative Urine RBC 3-5 H Urine WBC 0-5 Ur Squamous Epith Cells 0-2 Urine Bacteria None Seen Hyaline Casts 0-2 Stool Occult Blood NEGATIVE Imaging Radiologist's Impressions: Impressions Abdomen/Pelvis CT 03/13/23 01:22 IMPRESSION: CHEST: * Small sliding-type hiatal hernia with marked submucosal edema and mucosal hyperemia throughout the distal third of the esophagus compatible with severe esophagitis. This severe edema within the distal esophagus may be resulting in partial obstruction. An esophageal stricture could also be contributing. Recommend GI consultation and esophagram for further evaluation. * Upper lobe predominant patchy and in some cases nodular airspace opacities bilaterally, likely infectious/inflammatory in etiology and of indeterminate activity / chronology. Given the somewhat nodular appearance of some of the opacities, consider a follow-up CT chest in 3-6 months for reevaluation. * Mild emphysema and diffuse mild cylindrical bronchiectasis/chronic airways disease. ABDOMEN/PELVIS: * No acute findings within the abdomen or pelvis. * Gastrostomy tube within the gastric antrum. * No intestinal obstruction or inflammation. * Coronary calcifications. * Degenerative changes of the lumbar spine as described, most pronounced at L1-L2 where there is at least moderate bilateral foraminal narrowing, worse on the right. Chest CT 03/13/23 01:22 IMPRESSION: CHEST: * Small sliding-type hiatal hernia with marked submucosal edema and mucosal hyperemia throughout the distal third of the esophagus compatible with severe esophagitis. This severe edema within the distal esophagus may be resulting in partial obstruction. An esophageal stricture could also be contributing. Recommend GI consultation and esophagram for further evaluation. * Upper lobe predominant patchy and in some cases nodular airspace opacities bilaterally, likely infectious/inflammatory in etiology and of indeterminate activity / chronology. Given the somewhat nodular appearance of some of the opacities, consider a follow-up CT chest in 3-6 months for reevaluation. * Mild emphysema and diffuse mild cylindrical bronchiectasis/chronic airways disease. ABDOMEN/PELVIS: * No acute findings within the abdomen or pelvis. * Gastrostomy tube within the gastric antrum. * No intestinal obstruction or inflammation. * Coronary calcifications. * Degenerative changes of the lumbar spine as described, most pronounced at L1-L2 where there is at least moderate bilateral foraminal narrowing, worse on the right. Assessment and Plan (1) Esophagitis: Status: Acute Plan This is a 57-year-old female with pertinent history of CVA with residual left-sided hemiparesis, dysphagia due to CVA, gastroesophageal reflux disease, mood disorder who was sent to the emergency department for evaluation of multiple episodes of vomiting. #. Intractable vomiting due to severe esophagitis. Reports of black tarry vomitus. Will resuscitate with IV crystalloids. Imaging with possible esophageal stricture. Consulting GI, appreciate assistance. Continue empiric antibiotics. Close monitor H&H and hemodynamics. IV Protonix given in the ER #. Imaging with upper lobe opacities in bilateral lungs. Patient without cough or respiratory symptoms. Low concern for pneumonia #. Dysphagia due to CVA. Patient is NPO at baseline. Hold off G-tube feedings until evaluated by GI #. Mood disorder. Continue home mood stabilizers Med rec pending DVT prophylaxis: SCDs Full code Admit as inpatient and will require two night minimum hospital stay for IV antibiotics. Specialist consult pending Time Spent With Patient Time: Total time managing care of this patient today ____ minutes. Quality Stroke Does the patient have a stroke diagnosis?: No VTE Prior VTE?: No VTE Risk Level:: Medical - moderate - high VTE Device Contraindication: N/A - Device Ordered VTE Drug Contraindication: Treatment Not Indicated
[2023-03-13] MEDS: vancomycin HCL 1,250 MG in 0.9 % Sodium Chloride 250 ML 166.67 MG IV (03:47)
--- NOTE | 2023-03-13 04:55 | PC.NURSE ---
30 ml/kg bolus deferred at this time. per Dr. Gale.
[2023-03-13 05:17] LABS: Basophils Percent Auto 0.3 % (0-2); Eosinophils Percent Auto 0.1 % (0-4); Hematocrit 35.3 % (37.0-47.0); Hemoglobin 11.2 g/dl (12.0-16.0); Imm Gran Abs Auto 0.06 X10*3/uL (0.00-0.03); Imm Gran Pct Auto 0.5 % (0.0-0.4); Lymphocytes Absolute Auto 1.8 X10*3/uL (1.2-4.9); Lymphocytes Percent Auto 14.1 % (20-40); Mean Corpuscular HGB Conc 31.7 g/dl (31.0-35.0); Mean Corpuscular Hemoglobin 26.3 pg (27.0-33.0); Mean Corpuscular Volume 82.9 fL (80.0-98.0); Mean Platelet Volume 10.4 fL (9.4-12.3); Monocytes Absolute Auto 0.8 X10*3/uL (0.1-1.2); Monocytes Percent Auto 5.8 % (2-11); Neutrophils Absolute Auto 10.2 x10*3/uL (2.0-8.3); Neutrophils Percent Auto 79.2 % (45-73); PLT CLUMP 1; Red Blood Count 4.26 X10*6/uL (4.20-5.50); Red Cell Distribution Width 17.5 % (11.0-16.0); SCAN SMEAR FLAG 1
[2023-03-13 05:26] LABS: MANUAL DIFF FLAG NO; Platelet Count 445 X10*3/uL (160-400); White Blood Count 12.9 X10*3/uL (4.8-10.8)
[2023-03-13 05:32] LABS: Anion Gap 17 (12-20); Blood Urea Nitrogen 16 mg/dL (9-16); Calcium 8.8 mg/dL (8.4-10.2); Carbon Dioxide 20 mmol/L (22-29); Chloride 113 mmol/L (96-108); Creatinine Clr Calc Pharmacy 70.4; Estimated Glomerular Filt Rate > 60; Glucose Random 118 mg/dL (60-115); Potassium 3.7 mmol/L (3.3-5.1); Sodium 146 mmol/L (135-145)
[2023-03-13 06:45] VITALS: BP 110/54; PULSE 66; RESP 12; TEMP 36.9
--- NOTE | 2023-03-13 08:01 | PHA.PROG ---
Admission Date/Time: March 13, 2023 03:16 Indication: INTRA-ABDOMINAL INFECTION Weight in k.163 kg Adjusted body weight in K.925 [place] body weight in K.1 Obesity Dosing Indication % IBW: Serum Creatinine - Last 168 Hours 03/13/23 03/13/23 00:02 04:52 Creatinine 0.78 0.68 Estimated CrCl and GFR - Last 168 Hours 03/13/23 03/13/23 00:02 04:52 Estim Creat Clear Calc 61.4 70.4 Estimated GFR > 60 > 60 Vancomycin Loading Dose: 1250 Current Vancomycin Dosing Regimen: 1250 Q24 Vancomycin Monitoring using AUC goal of 400 - 600 range with trough as surrogate marker:410 Date and Time for next Vancomycin Level to be drawn: 03/14 1900 Pharmacist Comments on Vancomycin Plan: AUC EXPECTED TO BE ON THE LOWER SIDE BUT STARTING Q24 DOSING 15 HOURS AFTER LOAD WAS GIVEN TO ALLOW FOR LEVEL TO INCREASE FASTER AND WILL CHECK LEVEL BEFORE 3RD DOSE TO ENSURE SAFETY AND EFFICACY Vancomycin dosing will take advantage of [employer] as a clinical decision support tool that uses Bayesian modeling to calculate individual patient's pharmacokinetic parameters and forecast the patient's drug concentration time course with the target goal AUC 24 range of 400 - 600 mg/L/hr.
--- NOTE | 2023-03-13 08:09 | P.CNGI_ITS ---
History of Present Illness Data of Consult Service Date: 03/13/23 Requesting physician: Enoch Ogden Primary Care Provider: Unknown Physician HPI Reason for consult: Vomiting This is a 57 y.o F with PMH of CVA, esophageal stricture leading to G tube dependence who was brought in for multiple episodes of vomiting. Pt reports that around 3-4 years ago she started noticing difficulty swallowing and was diagnosed with a lower esophageal stricture. Underwent multiple EGDs with dilation at [facility] without much resolution and therefore had a G tube place for nutrition. She is able to swallow thin liquids without any difficulty. For the past few weeks she has noticed increased nausea but yest had sudden onset of vomiting after she had some lemonade and then proceeded to throw up most of the day. Initial episodes were non bloody and non bilious however then turned into coffee grounds which prompted visit to ER. On presentation her vitals were noted to be stable. Labs were significant for leukocytosis and hemoconcentration. Currently at the time of assessment, pt reports improvement in nausea and wonders if she can have a trial of CLD. Otherwise no abd pain, chest pain or shortness of breath. Review of Systems Review of Systems: Yes all other systems are reviewed and are negative PMFSH Past Medical History Medical History CVA (cerebral vascular accident) Dysphagia G tube feedings GERD (gastroesophageal reflux disease) Hemiparesis affecting left side as late effect of cerebrovascular accident Mood disorder Social History Social History Alcohol intake: never Patient Tobacco Use Status: Tobacco use Unknown Smoked in Last 30 Days: No Use of substances other than those prescribed or required for medical reasons: No Advance Directives: No Advance Directives Information Provided: Yes Nutrition Risks: Receiving home tube feeding or CPN Patient : No Meds Allergies Allergy/AdvReac Type Severity Reaction Status Date / Time Sulfa (Sulfonamide AdvReac Unknown Unknown Verified 09/07/21 00:44 Antibiotics) Active Medications: Current Medications Acetaminophen (Acetaminophen 325 Mg Tablet) 650 mg PO Q6H PRN PRN Reason: Pain, Mild (Pain Scale 1-3) Acetaminophen (Acetaminophen Supp 650 Mg Supp.Rect) 650 mg DC Q6H PRN PRN Reason: Pain, Mild (Pain Scale 1-3) Piperacillin Sod/Tazobactam (Sod 4.5 gm/ Sodium Chloride) 100 mls @ 200 mls/hr IV 0000,0600,1200,1800 [facility] Vancomycin HCl 1,250 mg/ (Sodium Chloride) 250 mls @ 166.667 mls/hr IV Q24H [facility] Melatonin (Melatonin 3 Mg Tablet) 6 mg PO BEDTIME PRN PRN Reason: Insomnia Ondansetron HCl (Ondansetron Hcl 4 Mg/2 Ml Vial) 4 mg IVPUSH Q8H PRN PRN Reason: Nausea and Vomiting Last Admin: 03/13/23 05:36 Dose: 4 mg Pharmacy Consult (Consult Rx Perform Med Rec) 1 each MISCELLANE ONCE PRN PRN Reason: Consult order Pharmacy Consult (Consult Rx Vancomycin Dosing) 1 each MISCELLANE DAILY PRN PRN Reason: Consult order Sodium Chloride (0.9 % Sodium Chloride Flush 3 Ml Syringe) 3 ml IVFLUSH QSHIFT [facility] Home Medications Medication Instructions Recorded Confirmed Last Taken Type albuterol sulfate 90 mcg/actuation 1 inh inhalation QID PRN Shortness 03/13/23 03/13/23 Unknown History aerosol inhaler Of Breath aspirin 81 mg tablet,delayed 81 mg feeding tube DAILY 03/13/23 03/13/23 Unknown History release atorvastatin 80 mg tablet 80 mg feeding tube DAILY 03/13/23 03/13/23 Unknown History bisacodyl 10 mg rectal suppository 10 mg DC DAILY PRN Constipation 03/13/23 03/13/23 Unknown History clonazepam 1 mg tablet 1 mg feeding tube TID 03/13/23 03/13/23 Unknown History clozapine 50 mg tablet (Clozaril) 50 mg feeding tube DAILY 03/13/23 03/13/23 Unknown History docusate sodium 50 mg/5 mL oral 100 mg feeding tube BEDTIME 03/13/23 03/13/23 Unknown History liquid gabapentin 250 mg/5 mL (5 mL) oral 100 mg feeding tube BID 03/13/23 03/13/23 Unknown History solution lansoprazole 30 mg delayed 30 mg feeding tube BID 03/13/23 03/13/23 Unknown History release,disintegrating tablet midodrine 5 mg tablet 15 mg PO TID 03/13/23 03/13/23 Unknown History multivitamin with minerals 10 ml feeding tube DAILY 03/13/23 03/13/23 Unknown History potassium chloride 20 mEq/15 mL 40 meq feeding tube DAILY 03/13/23 03/13/23 Unknown History oral liquid quetiapine 100 mg tablet 100 mg feeding tube BEDTIME 03/13/23 03/13/23 Unknown History sennosides 8.8 mg/5 mL oral syrup 10 ml feeding tube BEDTIME PRN 03/13/23 03/13/23 Unknown History (senna) Constipation sertraline 20 mg/mL oral 200 mg feeding tube DAILY 03/13/23 03/13/23 Unknown History concentrate sodium phosphates 19 gram-7 118 ml DC DAILY PRN severe 03/13/23 03/13/23 Unknown History gram/118 mL enema (Fleet Enema) constipation sucralfate 100 mg/mL oral 10 ml PO QID 03/13/23 03/13/23 Unknown History suspension Physical Exam Vital Signs: Vital Signs: Last Vital Signs Temp 98.4 F 03/13/23 06:45 Pulse 66 03/13/23 06:45 Resp 12 03/13/23 06:45 BP 110/54 L 03/13/23 06:45 Pulse Ox 99 03/13/23 02:28 O2 Del Method Room Air 03/13/23 02:28 O2 Flow Rate 96 03/13/23 06:45 BMI result Body Mass Index 21.0 Gen appear: NAD HEENT: nonicteric, edentulous Chest: mild rales at bases CVS: Regular S1/S2 Abd: soft, nontender, nondistended, bowel sounds +, 22 Fr G tube in place Ext: no peripheral edema Results Labs 03/13/23 04:52 03/13/23 04:52 Labs: Short CBC 03/13/23 03/13/23 Range/Units 00:02 04:52 WBC 18.0 H 12.9 H (4.8-10.8) X10*3/uL Hgb 13.1 11.2 L (12.0-16.0) g/dl Hct 41.2 35.3 L (37.0-47.0) % Plt Count 633 H 445 H D (160-400) X10*3/uL BMP 03/13/23 03/13/23 00:02 04:52 Sodium 145 146 H Potassium 3.9 3.7 Chloride 106 113 H Carbon Dioxide 22 20 L BUN 19 H 16 Creatinine 0.78 0.68 Calcium 10.4 H 8.8 D Liver Function 03/13/23 Range/Units 00:02 Total Bilirubin 0.2 (0.0-1.0) mg/dL AST 27 (5-31) U/L ALT 23 (0-31) U/L Alkaline Phosphatase 135 H (39-117) U/L Albumin 4.7 (3.5-5.0) g/dL Urine 03/13/23 Range/Units 02:28 Urine Color Yellow Urine Appearance Turbid Urine pH 8.5 (5.0-9.0) Ur Specific [place] >= 1.030 H (1.005-1.025) Urine Protein 30 (1+) H (Neg-Trace) mg/dL Urine Glucose (UA) Negative (Negative) mg/dL Assessment and Plan (1) Esophagitis: Status: Acute (2) Dysphagia: Status: Acute (3) Vomiting: Status: Acute Plan Ddx include esophagitis, GERD, worsening stricture, PUD. Recommendations: - Barium esophagogram - EGD tentatively ammon for tmrw +/- dilation - Can have CLD as tolerated - NPO after MN Thank you for allowing me to participate in her care. Please do not hesitate to reach out for any questions or concerns. Time Spent With Patient Time: Total time managing care of this patient today ____ minutes. Procedures Date of Service Date of Service: 03/13/23
--- NOTE | 2023-03-13 08:19 | PHA.MEDREC ---
Pharmacy Consult ? Medication Reconciliation Pharmacy has completed the medication reconciliation. List from [facility]
[2023-03-13] MEDS: Piperacillin Sodium/Tazobactam 4.5 GM in 0.9 % Sodium Chloride 100 ML IV (08:47)
[2023-03-13] MEDS: clonazePAM 1 MG TABLET G-TUBE ×3 (08:48→22:18)
[2023-03-13] MEDS: 0.9 % Sodium Chloride Flush 3 ML SYRINGE IVFLUSH ×2 (08:51→15:52)
[2023-03-13 09:28] VITALS: BP 130/66; PULSE 55; RESP 16; TEMP 37.2; O2SAT 97
[2023-03-13] MEDS: cloZAPine 25 MG TABLET 50 MG G-TUBE (10:13)
--- NOTE | 2023-03-13 11:06 | PM.EVENT ---
Event Note Date of Service: 03/13/23 Event Note: presented with multiple episodes of vomit, noted to have black colored vomitus during last few episodes no associated fever chills of cough, has chronic G-tube feedings. no recurrent episodes of nausea, vomiting, this morning feels thirsty requesting for water, denies abdominal pain. Exam unchanged as per HPI A/p 57-year-old female with pertinent history of CVA with residual left-sided hemiparesis, dysphagia due to CVA, gastroesophageal reflux disease, mood disorder who was sent to the emergency department for evaluation of multiple episodes of vomiting. #.? Intractable vomiting due to severe esophagitis.? Reports of black vomitus, continue NPO, IV fluids, barium swallow ordered, possible upper endoscopy tomorrow by Dr. Cole. hematocrit drop from 41-35.3, above transfusion threshold?, continue IV Protonix follow H&H #.? Imaging with upper lobe opacities in bilateral lungs.? Patient without cough or respiratory symptoms. Low concern for pneumonia, will DC IV antibiotics #.? Dysphagia due to CVA.? Patient is NPO at baseline. Hold off G-tube feedings until evaluated by GI #.? Mood disorder.? Continue claw 0, Klonopin, Neurontin, Seroquel and Zoloft. DVT prophylaxis:? SCDs Full code Admit as inpatient and will require two night minimum hospital stay for IV antibiotics.? Specialist consult pending Time Spent With Patient Time: Total time managing care of this patient today ____ minutes.
--- NOTE | 2023-03-13 11:42 | PC.NURSE ---
Patient taken to Barium swallow study, will start LR when patient returns.
[2023-03-13] MEDS: Lactated Ringers 1,000 ML 80 ML IVCONT (11:51)
--- NOTE | 2023-03-13 12:35 | PC.NURSE ---
Patient seen by GI doctor, plan for endoscopy tomorrow. Pt on clear liquid diet until midnight, then NPO after midnight.
[2023-03-13 13:13] VITALS: BP 118/61; PULSE 77; RESP 18; TEMP 36.7; O2SAT 100
--- NOTE | 2023-03-13 13:36 | MHC.EDTECH ---
pt cleaned and bed linens changed. pt repositioned and sat upright in the bed. call lopez placed within reach, pt has no other complaints at this time
[2023-03-13 16:34] LABS: Hematocrit 33.3 % (37.0-47.0); Hemoglobin 10.4 g/dl (12.0-16.0)
[2023-03-13] MEDS: Dextrose 5 % and Lactated Ring 1,000 ML 100 ML IVCONT (18:50)
[2023-03-13] MEDS: Gabapentin 100 MG CAPSULE G-TUBE (21:05)
[2023-03-13] MEDS: Melatonin 3 MG TABLET 6 MG PO (21:05)
[2023-03-13] MEDS: QUEtiapine Fumarate 100 MG TABLET G-TUBE (21:14)
[2023-03-13 21:27] VITALS: BP 120/71; PULSE 66; RESP 14; TEMP 36.8; O2SAT 93
[2023-03-14] VITALS (9 sets, daily range): BP systolic 104–131; BP diastolic 40–85; PULSE 54–111; RESP 16–22; TEMP 36.3–37.2; O2SAT 96–100
--- NOTE | 2023-03-14 00:05 | PC.NURSE ---
Report received from off-going RN at 2300 hours. Pt is a 57 y/o female who presents for evaluation after multiple episodes of vomiting on Monday night. Came in via EMS. Pt is pleasant and awake. Engaging appropriately. No acute distress on initial contact. Pt is being admitted and is NPO as of midnight, pending endoscopy. Has patent 20G IV acess in right foot with fluids running via pump, no reported pain at the site and no signs of infiltration. Will continue to monitor.
[2023-03-14] MEDS: Dextrose 5 % and Lactated Ring 1,000 ML 100 ML IVCONT (04:58)
[2023-03-14 05:47] LABS: Hematocrit 32.2 % (37.0-47.0); Hemoglobin 9.8 g/dl (12.0-16.0); Mean Corpuscular HGB Conc 30.4 g/dl (31.0-35.0); Mean Corpuscular Hemoglobin 25.9 pg (27.0-33.0); Mean Corpuscular Volume 85.2 fL (80.0-98.0); Mean Platelet Volume 10.4 fL (9.4-12.3); Platelet Count 352 X10*3/uL (160-400); Red Blood Count 3.78 X10*6/uL (4.20-5.50); Red Cell Distribution Width 17.4 % (11.0-16.0)
[2023-03-14 06:07] LABS: Anion Gap 12 (12-20); Blood Urea Nitrogen 12 mg/dL (9-16); Calcium 8.6 mg/dL (8.4-10.2); Carbon Dioxide 25 mmol/L (22-29); Chloride 110 mmol/L (96-108); Creatinine Clr Calc Pharmacy 77.3; Estimated Glomerular Filt Rate > 60; Glucose Random 121 mg/dL (60-115); Potassium 3.2 mmol/L (3.3-5.1); Sodium 144 mmol/L (135-145)
--- NOTE | 2023-03-14 10:15 | PC.NURSE ---
advised by Dr. Cabrera to hold pt 0900 meds, if able to, until after pt goes for endoscopy
[2023-03-14] MEDS: KCl 20 mEq in 5 % Dex/Lact Rin 20 MEQ/1,000 ML IV.SOLN 100 MEQ IVCONT ×2 (10:42→20:44)
[2023-03-14] MEDS: Potassium Chloride/H20 10 MEQ/100 ML PIGGYBACK 100 MEQ IV (10:54)
--- NOTE | 2023-03-14 11:41 | HO.ANESPROP2 ---
[facility] Active Problems Active Problems: All Active Problems (Updated 03/13/23 @ 13:10 by Giselle Cole MD) Vomiting (Acute) Esophagitis (Acute) GERD (gastroesophageal reflux disease) (Acute) Dysphagia (Acute) Mood disorder (Acute) Hemiparesis affecting left side as late effect of cerebrovascular accident (Acute) CVA (cerebral vascular accident) (Acute) Aspiration pneumonia (Acute) Mass of esophagus (Acute) Past Medical History Medical History CVA (cerebral vascular accident) Dysphagia G tube feedings GERD (gastroesophageal reflux disease) Hemiparesis affecting left side as late effect of cerebrovascular accident Mood disorder Functional capacity: independent ambulation Surgical History History of Problems with Anesthesia: No Social History Social History Alcohol intake: never Patient Tobacco Use Status: Tobacco use Unknown Smoked in Last 30 Days: No Use of substances other than those prescribed or required for medical reasons: No Advance Directives: No Advance Directives Information Provided: Yes Nutrition Risks: Receiving home tube feeding or CPN Patient : No Meds Allergies Allergy/AdvReac Type Severity Reaction Status Date / Time Sulfa (Sulfonamide AdvReac Unknown Unknown Verified 09/07/21 00:44 Antibiotics) Active Medications: Current Medications Acetaminophen (Acetaminophen 325 Mg Tablet) 650 mg PO Q6H PRN PRN Reason: Pain, Mild (Pain Scale 1-3) Acetaminophen (Acetaminophen Supp 650 Mg Supp.Rect) 650 mg MS Q6H PRN PRN Reason: Pain, Mild (Pain Scale 1-3) Albuterol Sulfate (Albuterol Sulfate 90 Mcg 8 Gm Inhaler) 1 puff INHALE QID PRN PRN Reason: Shortness Of Breath Clonazepam (Clonazepam 1 Mg Tablet) 1 mg G-TUBE TID [facility] Last Admin: 03/13/23 22:18 Dose: 1 mg Clozapine (Clozapine 25 Mg Tablet) 50 mg G-TUBE DAILY [facility] Last Admin: 03/13/23 10:13 Dose: 50 mg Gabapentin (Gabapentin 100 Mg Capsule) 100 mg G-TUBE BID [facility] Last Admin: 03/13/23 21:05 Dose: 100 mg Potassium Cl/Dextrose/Lact Ringer's (Kcl 20 Meq In 5 % Dex/Lact Rin) 20 meq in 1,000 mls @ 100 mls/hr IVCONT .Q10H [facility] Melatonin (Melatonin 3 Mg Tablet) 6 mg PO BEDTIME PRN PRN Reason: Insomnia Last Admin: 03/13/23 21:05 Dose: 6 mg Ondansetron HCl (Ondansetron Hcl 4 Mg/2 Ml Vial) 4 mg IVPUSH Q8H PRN PRN Reason: Nausea and Vomiting Last Admin: 03/13/23 21:05 Dose: 4 mg Pharmacy Consult (Consult Rx Perform Med Rec) 1 each MISCELLANE ONCE PRN PRN Reason: Consult order Pharmacy Consult (Consult Rx Vancomycin Dosing) 1 each MISCELLANE DAILY PRN PRN Reason: Consult order Quetiapine Fumarate (Quetiapine Fumarate 100 Mg Tablet) 100 mg G-TUBE BEDTIME [facility] Last Admin: 03/13/23 21:14 Dose: 100 mg Sertraline HCl (Sertraline Hcl 100 Mg Tablet) 200 mg G-TUBE DAILY [facility] Sodium Biphosphate/Sodium Phosphate (Sodium Phosphate,[place]-Dibasic 133 Ml Enema) 133 ml MS DAILY PRN PRN Reason: severe constipation Sodium Chloride (0.9 % Sodium Chloride Flush 3 Ml Syringe) 3 ml IVFLUSH QSHIFT [facility] Last Admin: 03/14/23 07:34 Dose: Not Given Home Medications Medication Instructions Recorded Confirmed Last Taken Type albuterol sulfate 90 mcg/actuation 1 inh inhalation QID PRN Shortness 03/13/23 03/13/23 Unknown History aerosol inhaler Of Breath aspirin 81 mg tablet,delayed 81 mg feeding tube DAILY 03/13/23 03/13/23 Unknown History release atorvastatin 80 mg tablet 80 mg feeding tube DAILY 03/13/23 03/13/23 Unknown History bisacodyl 10 mg rectal suppository 10 mg MS DAILY PRN Constipation 03/13/23 03/13/23 Unknown History clonazepam 1 mg tablet 1 mg feeding tube TID 03/13/23 03/13/23 Unknown History clozapine 50 mg tablet (Clozaril) 50 mg feeding tube DAILY 03/13/23 03/13/23 Unknown History docusate sodium 50 mg/5 mL oral 100 mg feeding tube BEDTIME 03/13/23 03/13/23 Unknown History liquid gabapentin 250 mg/5 mL (5 mL) oral 100 mg feeding tube BID 03/13/23 03/13/23 Unknown History solution lansoprazole 30 mg delayed 30 mg feeding tube BID 03/13/23 03/13/23 Unknown History release,disintegrating tablet midodrine 5 mg tablet 15 mg PO TID 03/13/23 03/13/23 Unknown History multivitamin with minerals 10 ml feeding tube DAILY 03/13/23 03/13/23 Unknown History potassium chloride 20 mEq/15 mL 40 meq feeding tube DAILY 03/13/23 03/13/23 Unknown History oral liquid quetiapine 100 mg tablet 100 mg feeding tube BEDTIME 03/13/23 03/13/23 Unknown History sennosides 8.8 mg/5 mL oral syrup 10 ml feeding tube BEDTIME PRN 03/13/23 03/13/23 Unknown History (senna) Constipation sertraline 20 mg/mL oral 200 mg feeding tube DAILY 03/13/23 03/13/23 Unknown History concentrate sodium phosphates 19 gram-7 118 ml MS DAILY PRN severe 03/13/23 03/13/23 Unknown History gram/118 mL enema (Fleet Enema) constipation sucralfate 100 mg/mL oral 10 ml PO QID 03/13/23 03/13/23 Unknown History suspension Exam Exam Date and Time: March 14, 2023 114 Height,Weight and Vital Signs: Height 5 ft 2 in Weight 52.163 kg Last Vital Signs Temp 98.3 F 03/13/23 21:27 Pulse 66 03/13/23 21:27 Resp 14 03/13/23 21:27 BP 120/71 03/13/23 21:27 Pulse Ox 93 03/13/23 21:27 O2 Del Method Room Air 03/13/23 21:27 O2 Flow Rate 96 03/13/23 06:45 Pertinent Lab Results Pertinent Lab Results: Laboratory Tests 03/13/23 03/13/23 03/13/23 00:02 00:02 00:02 WBC 18.0 H RBC 5.15 Hgb 13.1 Hct 41.2 MCV 80.0 MCH 25.4 L MCHC 31.8 RDW 17.4 H Plt Count 633 H MPV 9.7 Immature Gran % (Auto) 0.4 Neut % (Auto) 88.4 H Lymph % (Auto) 7.2 L [place] % (Auto) 3.7 Eos % (Auto) 0.0 Baso % (Auto) 0.3 Lymph # (Auto) 1.3 [place] # (Auto) 0.7 Eos # (Auto) 0.0 Baso # (Auto) 0.1 Abs Immat Gran (auto) 0.08 H Absolute Neuts (auto) 15.9 H Absolute Nucleated RBC 0.000 Nucleated RBC % (auto) 0.0 PT INR Sodium 145 Potassium 3.9 Chloride 106 Carbon Dioxide 22 Anion Gap 21 H BUN 19 H Creatinine 0.78 Estim Creat Clear Calc 61.4 Estimated GFR > 60 Random Glucose 131 H Lactic Acid Calcium 10.4 H Total Bilirubin 0.2 AST 27 ALT 23 Alkaline Phosphatase 135 H Troponin I High Sens < 2.7 Total Protein 8.3 H Albumin 4.7 Urine Color Urine Appearance Urine pH Ur Specific [place] Urine Protein Urine Glucose (UA) Urine Ketones Urine Blood Urine Nitrite Ur Leukocyte Esterase Urine RBC Urine WBC Ur Squamous Epith Cells Urine Bacteria Hyaline Casts Stool Occult Blood 03/13/23 03/13/23 03/13/23 00:02 01:38 02:16 WBC RBC Hgb Hct MCV MCH MCHC RDW Plt Count MPV Immature Gran % (Auto) Neut % (Auto) Lymph % (Auto) [place] % (Auto) Eos % (Auto) Baso % (Auto) Lymph # (Auto) [place] # (Auto) Eos # (Auto) Baso # (Auto) Abs Immat Gran (auto) Absolute Neuts (auto) Absolute Nucleated RBC Nucleated RBC % (auto) PT 12.4 INR 1.0 Sodium Potassium Chloride Carbon Dioxide Anion Gap BUN Creatinine Estim Creat Clear Calc Estimated GFR Random Glucose Lactic Acid 1.6 Calcium Total Bilirubin AST ALT Alkaline Phosphatase Troponin I High Sens Total Protein Albumin Urine Color Urine Appearance Urine pH Ur Specific [place] Urine Protein Urine Glucose (UA) Urine Ketones Urine Blood Urine Nitrite Ur Leukocyte Esterase Urine RBC Urine WBC Ur Squamous Epith Cells Urine Bacteria Hyaline Casts Stool Occult Blood NEGATIVE 03/13/23 03/13/23 03/13/23 02:28 04:52 04:52 WBC 12.9 H RBC 4.26 Hgb 11.2 L Hct 35.3 L MCV 82.9 MCH 26.3 L MCHC 31.7 RDW 17.5 H Plt Count 445 H D MPV 10.4 Immature Gran % (Auto) 0.5 H Neut % (Auto) 79.2 H Lymph % (Auto) 14.1 L [place] % (Auto) 5.8 Eos % (Auto) 0.1 Baso % (Auto) 0.3 Lymph # (Auto) 1.8 [place] # (Auto) 0.8 Eos # (Auto) 0.0 Baso # (Auto) 0.0 Abs Immat Gran (auto) 0.06 H Absolute Neuts (auto) 10.2 H Absolute Nucleated RBC 0.000 Nucleated RBC % (auto) 0.0 PT INR Sodium 146 H Potassium 3.7 Chloride 113 H Carbon Dioxide 20 L Anion Gap 17 BUN 16 Creatinine 0.68 Estim Creat Clear Calc 70.4 Estimated GFR > 60 Random Glucose 118 H Lactic Acid Calcium 8.8 D Total Bilirubin AST ALT Alkaline Phosphatase Troponin I High Sens Total Protein Albumin Urine Color Yellow Urine Appearance Turbid Urine pH 8.5 Ur Specific [place] >= 1.030 H Urine Protein 30 (1+) H Urine Glucose (UA) Negative Urine Ketones Negative Urine Blood Negative Urine Nitrite Negative Ur Leukocyte Esterase Negative Urine RBC 3-5 H Urine WBC 0-5 Ur Squamous Epith Cells 0-2 Urine Bacteria None Seen Hyaline Casts 0-2 Stool Occult Blood 03/13/23 03/14/23 03/14/23 15:50 05:37 05:37 WBC 8.0 RBC 3.78 L Hgb 10.4 L 9.8 L Hct 33.3 L 32.2 L MCV 85.2 MCH 25.9 L MCHC 30.4 L RDW 17.4 H Plt Count 352 MPV 10.4 Immature Gran % (Auto) Neut % (Auto) Lymph % (Auto) [place] % (Auto) Eos % (Auto) Baso % (Auto) Lymph # (Auto) [place] # (Auto) Eos # (Auto) Baso # (Auto) Abs Immat Gran (auto) Absolute Neuts (auto) Absolute Nucleated RBC 0.000 Nucleated RBC % (auto) 0.0 PT INR Sodium 144 Potassium 3.2 L Chloride 110 H Carbon Dioxide 25 Anion Gap 12 BUN 12 Creatinine 0.62 Estim Creat Clear Calc 77.3 Estimated GFR > 60 Random Glucose 121 H Lactic Acid Calcium 8.6 Total Bilirubin AST ALT Alkaline Phosphatase Troponin I High Sens Total Protein Albumin Urine Color Urine Appearance Urine pH Ur Specific [place] Urine Protein Urine Glucose (UA) Urine Ketones Urine Blood Urine Nitrite Ur Leukocyte Esterase Urine RBC Urine WBC Ur Squamous Epith Cells Urine Bacteria Hyaline Casts Stool Occult Blood Airway Mallampati Class: II TM Dist: >3cm Neck ROM: Full Heart: rrr Lungs: cts Assessment and Plan Assessment Anesthesia Assessment: Anesthesia Plan Discussed and Chart Reviewed Final Anesthetic Review History of Problems with Anesthesia: No NPO: Yes ASA Class: III Final Preanesthetic Review: No Changes in Pt Med Stat, Meds/Allgs Chart Reviewed, Consent Obtained/Reviewed and Anes Risks/Benef Reviewed Patient Risk: Intermediate Procedure Risk: Low Anesthetic Plan Anesthetic Plan: GA Disposition: Standard PACU
--- NOTE | 2023-03-14 11:50 | PC.NURSE ---
assumed care of pt at 0700. pt a&o, sleeping on and off in hospital bed. reports nausea, provider notified. pt medicated per oct but did not tolerate potassium chloride due to pain at IV site. IV infusion stopped, provider notified and aware. previous IV fluids currently running per oct. pt resting quietly sebas, awaiting transfer to [facility]. rr even/unlabored. call lopez within reach, pt needs met at this time
--- NOTE | 2023-03-14 12:24 | HO.ANESPROP2 ---
[facility] Active Problems Active Problems: All Active Problems (Updated 03/13/23 @ 13:10 by Giselle Cole MD) Vomiting (Acute) Esophagitis (Acute) GERD (gastroesophageal reflux disease) (Acute) Dysphagia (Acute) Mood disorder (Acute) Hemiparesis affecting left side as late effect of cerebrovascular accident (Acute) CVA (cerebral vascular accident) (Acute) Aspiration pneumonia (Acute) Mass of esophagus (Acute) Past Medical History Medical History CVA (cerebral vascular accident) Dysphagia G tube feedings GERD (gastroesophageal reflux disease) Hemiparesis affecting left side as late effect of cerebrovascular accident Mood disorder Functional capacity: independent ambulation Family History Family history of problems with anesthesia: No Surgical History History of Problems with Anesthesia: No Social History Social History Alcohol intake: never Patient Tobacco Use Status: Never used Tobacco Meds Allergies Allergy/AdvReac Type Severity Reaction Status Date / Time Sulfa (Sulfonamide AdvReac Unknown Unknown Verified 09/07/21 00:44 Antibiotics) Active Medications: Current Medications Acetaminophen (Acetaminophen 325 Mg Tablet) 650 mg PO Q6H PRN PRN Reason: Pain, Mild (Pain Scale 1-3) Acetaminophen (Acetaminophen Supp 650 Mg Supp.Rect) 650 mg IA Q6H PRN PRN Reason: Pain, Mild (Pain Scale 1-3) Albuterol Sulfate (Albuterol Sulfate 90 Mcg 8 Gm Inhaler) 1 puff INHALE QID PRN PRN Reason: Shortness Of Breath Clonazepam (Clonazepam 1 Mg Tablet) 1 mg G-TUBE TID [facility] Last Admin: 03/13/23 22:18 Dose: 1 mg Clozapine (Clozapine 25 Mg Tablet) 50 mg G-TUBE DAILY [facility] Last Admin: 03/13/23 10:13 Dose: 50 mg Gabapentin (Gabapentin 100 Mg Capsule) 100 mg G-TUBE BID [facility] Last Admin: 03/13/23 21:05 Dose: 100 mg Potassium Cl/Dextrose/Lact Ringer's (Kcl 20 Meq In 5 % Dex/Lact Rin) 20 meq in 1,000 mls @ 100 mls/hr IVCONT .Q10H [facility] Last Admin: 03/14/23 10:42 Dose: 100 mls/hr Melatonin (Melatonin 3 Mg Tablet) 6 mg PO BEDTIME PRN PRN Reason: Insomnia Last Admin: 03/13/23 21:05 Dose: 6 mg Ondansetron HCl (Ondansetron Hcl 4 Mg/2 Ml Vial) 4 mg IVPUSH Q8H PRN PRN Reason: Nausea and Vomiting Last Admin: 03/13/23 21:05 Dose: 4 mg Pharmacy Consult (Consult Rx Perform Med Rec) 1 each MISCELLANE ONCE PRN PRN Reason: Consult order Pharmacy Consult (Consult Rx Vancomycin Dosing) 1 each MISCELLANE DAILY PRN PRN Reason: Consult order Quetiapine Fumarate (Quetiapine Fumarate 100 Mg Tablet) 100 mg G-TUBE BEDTIME [facility] Last Admin: 03/13/23 21:14 Dose: 100 mg Sertraline HCl (Sertraline Hcl 100 Mg Tablet) 200 mg G-TUBE DAILY [facility] Sodium Biphosphate/Sodium Phosphate (Sodium Phosphate,[place]-Dibasic 133 Ml Enema) 133 ml IA DAILY PRN PRN Reason: severe constipation Sodium Chloride (0.9 % Sodium Chloride Flush 3 Ml Syringe) 3 ml IVFLUSH QSHIFT [facility] Last Admin: 03/14/23 07:34 Dose: Not Given Home Medications Medication Instructions Recorded Confirmed Last Taken Type albuterol sulfate 90 mcg/actuation 1 inh inhalation QID PRN Shortness 03/13/23 03/13/23 Unknown History aerosol inhaler Of Breath aspirin 81 mg tablet,delayed 81 mg feeding tube DAILY 03/13/23 03/13/23 Unknown History release atorvastatin 80 mg tablet 80 mg feeding tube DAILY 03/13/23 03/13/23 Unknown History bisacodyl 10 mg rectal suppository 10 mg IA DAILY PRN Constipation 03/13/23 03/13/23 Unknown History clonazepam 1 mg tablet 1 mg feeding tube TID 03/13/23 03/13/23 Unknown History clozapine 50 mg tablet (Clozaril) 50 mg feeding tube DAILY 03/13/23 03/13/23 Unknown History docusate sodium 50 mg/5 mL oral 100 mg feeding tube BEDTIME 03/13/23 03/13/23 Unknown History liquid gabapentin 250 mg/5 mL (5 mL) oral 100 mg feeding tube BID 03/13/23 03/13/23 Unknown History solution lansoprazole 30 mg delayed 30 mg feeding tube BID 03/13/23 03/13/23 Unknown History release,disintegrating tablet midodrine 5 mg tablet 15 mg PO TID 03/13/23 03/13/23 Unknown History multivitamin with minerals 10 ml feeding tube DAILY 03/13/23 03/13/23 Unknown History potassium chloride 20 mEq/15 mL 40 meq feeding tube DAILY 03/13/23 03/13/23 Unknown History oral liquid quetiapine 100 mg tablet 100 mg feeding tube BEDTIME 03/13/23 03/13/23 Unknown History sennosides 8.8 mg/5 mL oral syrup 10 ml feeding tube BEDTIME PRN 03/13/23 03/13/23 Unknown History (senna) Constipation sertraline 20 mg/mL oral 200 mg feeding tube DAILY 03/13/23 03/13/23 Unknown History concentrate sodium phosphates 19 gram-7 118 ml IA DAILY PRN severe 03/13/23 03/13/23 Unknown History gram/118 mL enema (Fleet Enema) constipation sucralfate 100 mg/mL oral 10 ml PO QID 03/13/23 03/13/23 Unknown History suspension Exam Exam Date and Time: March 14, 2023 1224 Height,Weight and Vital Signs: Height 5 ft 2 in Weight 52.163 kg Last Vital Signs Temp 98.3 F 03/13/23 21:27 Pulse 66 03/13/23 21:27 Resp 14 03/13/23 21:27 BP 120/71 03/13/23 21:27 Pulse Ox 93 03/13/23 21:27 O2 Del Method Room Air 03/13/23 21:27 O2 Flow Rate 96 03/13/23 06:45 Pertinent Lab Results Pertinent Lab Results: Laboratory Tests 03/13/23 03/13/23 03/13/23 00:02 00:02 00:02 WBC 18.0 H RBC 5.15 Hgb 13.1 Hct 41.2 MCV 80.0 MCH 25.4 L MCHC 31.8 RDW 17.4 H Plt Count 633 H MPV 9.7 Immature Gran % (Auto) 0.4 Neut % (Auto) 88.4 H Lymph % (Auto) 7.2 L [place] % (Auto) 3.7 Eos % (Auto) 0.0 Baso % (Auto) 0.3 Lymph # (Auto) 1.3 [place] # (Auto) 0.7 Eos # (Auto) 0.0 Baso # (Auto) 0.1 Abs Immat Gran (auto) 0.08 H Absolute Neuts (auto) 15.9 H Absolute Nucleated RBC 0.000 Nucleated RBC % (auto) 0.0 PT INR Sodium 145 Potassium 3.9 Chloride 106 Carbon Dioxide 22 Anion Gap 21 H BUN 19 H Creatinine 0.78 Estim Creat Clear Calc 61.4 Estimated GFR > 60 Random Glucose 131 H Lactic Acid Calcium 10.4 H Total Bilirubin 0.2 AST 27 ALT 23 Alkaline Phosphatase 135 H Troponin I High Sens < 2.7 Total Protein 8.3 H Albumin 4.7 Urine Color Urine Appearance Urine pH Ur Specific [place] Urine Protein Urine Glucose (UA) Urine Ketones Urine Blood Urine Nitrite Ur Leukocyte Esterase Urine RBC Urine WBC Ur Squamous Epith Cells Urine Bacteria Hyaline Casts Stool Occult Blood 03/13/23 03/13/23 03/13/23 00:02 01:38 02:16 WBC RBC Hgb Hct MCV MCH MCHC RDW Plt Count MPV Immature Gran % (Auto) Neut % (Auto) Lymph % (Auto) [place] % (Auto) Eos % (Auto) Baso % (Auto) Lymph # (Auto) [place] # (Auto) Eos # (Auto) Baso # (Auto) Abs Immat Gran (auto) Absolute Neuts (auto) Absolute Nucleated RBC Nucleated RBC % (auto) PT 12.4 INR 1.0 Sodium Potassium Chloride Carbon Dioxide Anion Gap BUN Creatinine Estim Creat Clear Calc Estimated GFR Random Glucose Lactic Acid 1.6 Calcium Total Bilirubin AST ALT Alkaline Phosphatase Troponin I High Sens Total Protein Albumin Urine Color Urine Appearance Urine pH Ur Specific [place] Urine Protein Urine Glucose (UA) Urine Ketones Urine Blood Urine Nitrite Ur Leukocyte Esterase Urine RBC Urine WBC Ur Squamous Epith Cells Urine Bacteria Hyaline Casts Stool Occult Blood NEGATIVE 03/13/23 03/13/23 03/13/23 02:28 04:52 04:52 WBC 12.9 H RBC 4.26 Hgb 11.2 L Hct 35.3 L MCV 82.9 MCH 26.3 L MCHC 31.7 RDW 17.5 H Plt Count 445 H D MPV 10.4 Immature Gran % (Auto) 0.5 H Neut % (Auto) 79.2 H Lymph % (Auto) 14.1 L [place] % (Auto) 5.8 Eos % (Auto) 0.1 Baso % (Auto) 0.3 Lymph # (Auto) 1.8 [place] # (Auto) 0.8 Eos # (Auto) 0.0 Baso # (Auto) 0.0 Abs Immat Gran (auto) 0.06 H Absolute Neuts (auto) 10.2 H Absolute Nucleated RBC 0.000 Nucleated RBC % (auto) 0.0 PT INR Sodium 146 H Potassium 3.7 Chloride 113 H Carbon Dioxide 20 L Anion Gap 17 BUN 16 Creatinine 0.68 Estim Creat Clear Calc 70.4 Estimated GFR > 60 Random Glucose 118 H Lactic Acid Calcium 8.8 D Total Bilirubin AST ALT Alkaline Phosphatase Troponin I High Sens Total Protein Albumin Urine Color Yellow Urine Appearance Turbid Urine pH 8.5 Ur Specific [place] >= 1.030 H Urine Protein 30 (1+) H Urine Glucose (UA) Negative Urine Ketones Negative Urine Blood Negative Urine Nitrite Negative Ur Leukocyte Esterase Negative Urine RBC 3-5 H Urine WBC 0-5 Ur Squamous Epith Cells 0-2 Urine Bacteria None Seen Hyaline Casts 0-2 Stool Occult Blood 03/13/23 03/14/23 03/14/23 15:50 05:37 05:37 WBC 8.0 RBC 3.78 L Hgb 10.4 L 9.8 L Hct 33.3 L 32.2 L MCV 85.2 MCH 25.9 L MCHC 30.4 L RDW 17.4 H Plt Count 352 MPV 10.4 Immature Gran % (Auto) Neut % (Auto) Lymph % (Auto) [place] % (Auto) Eos % (Auto) Baso % (Auto) Lymph # (Auto) [place] # (Auto) Eos # (Auto) Baso # (Auto) Abs Immat Gran (auto) Absolute Neuts (auto) Absolute Nucleated RBC 0.000 Nucleated RBC % (auto) 0.0 PT INR Sodium 144 Potassium 3.2 L Chloride 110 H Carbon Dioxide 25 Anion Gap 12 BUN 12 Creatinine 0.62 Estim Creat Clear Calc 77.3 Estimated GFR > 60 Random Glucose 121 H Lactic Acid Calcium 8.6 Total Bilirubin AST ALT Alkaline Phosphatase Troponin I High Sens Total Protein Albumin Urine Color Urine Appearance Urine pH Ur Specific [place] Urine Protein Urine Glucose (UA) Urine Ketones Urine Blood Urine Nitrite Ur Leukocyte Esterase Urine RBC Urine WBC Ur Squamous Epith Cells Urine Bacteria Hyaline Casts Stool Occult Blood Airway Mallampati Class: II TM Dist: >3cm Neck ROM: Full Denture: Upper and Lower Heart: rrr Lungs: clear Assessment and Plan Final Anesthetic Review Family History of Problems with Anesthesia: No History of Problems with Anesthesia: No NPO: Yes ASA Class: III Final Preanesthetic Review: No Changes in Pt Med Stat, Meds/Allgs Chart Reviewed, Consent Obtained/Reviewed and Anes Risks/Benef Reviewed Patient Risk: Intermediate Procedure Risk: Low Anesthetic Plan Anesthetic Plan: MAC: Disposition: Standard PACU
--- NOTE | 2023-03-14 12:50 | PC.NURSE ---
pt left unit to SSS/OR
--- NOTE | 2023-03-14 12:56 | PC.NURSE ---
spoke to hcp and states she is ble to sign for herself. patient is alert and oriented. history of a stroke. left sided weakness.
--- NOTE | 2023-03-14 14:17 | P.OP_ITS ---
Operative Note Operative Note Date of Service: 03/14/23 Narrative: Procedure: Esophagogastroduodenoscopy Endoscopist: Giselle Cole MD Indication: Vomiting, esophageal stricture Anesthesia Provider: Marky Toro MD Anesthesia Type: GEA ?? EGD Procedure:?? The procedure, indications, preparation and potential complications were reviewed with the patient, who indicated understanding and gave written informed consent to proceed. A physical exam was performed. The patient was electively intubated for airway protection the anesthesiologist. The endoscope was introduced through the mouth, and advanced to the second part of duodenum. The mucosa was carefully examined on slow withdrawal of the endoscope. The patient tolerated the procedure well. There were no immediate complications.? ? EGD Findings:? * Esophagus:? Grade C esophagitis was noted in the lower esophagus with two areas of narrowing at 30 cm and then at the GE junction at 35 cm that was easily traversed with a regular gastroscope. * Stomach:? Normal mucosa was noted in the stomach. The G tube balloon was noted in the body of the fundus without any redness or ulceration around it. * Duodenum:? Normal mucosa was noted in the whole of the examined duodenum. Additional intervention: Using a wire-guided esophageal balloon, the esophagus was incrementially dilated from 10 mm to 12 mm. Small superficial tears were noted at 30 and 35 cm indicating successful dilation. ? EGD Impressions:? * Grade C esophagitis * Esophageal stricture (dilation) * Normal stomach (biopsy) * Normal duodenum (biopsy) ?? Recommendations:?? * Start PO omeprazole 40mg BID x 8 weeks and then once daily * Start liquid carafate 10ml QID * Magic mouthwash 10ml swish and swallow PRN for any discomfort * Repeat EGD in 8-10 weeks to assess for healing (and dilation, if desired by the pt) * Avoid NSAIDs. * Keep HOB elevated at 30-45 degrees at the time of administering tube feeds as well as at least for 1-2 hours after it * Avoid night time tube feeds, which can also worsen reflux Above has been reviewed with the patient.
[2023-03-14] MEDS: Mag&Al/Sim/Diphenhyd/Lidocaine 10 ML ORAL.SUSP PO (14:44)
--- NOTE | 2023-03-14 14:44 | P.PNIM_ITS ---
Subjective Subjective Date of Service: 03/14/23 Interval History: NPO this morning going for upper endoscopy, offers no acute complaints, resting comfortably, no acute overnight events, no nausea, no vomiting, no abdominal pain. complain of burning at site of iv potassium administration. Review of Systems All other system reviewed and negative. Physical Exam Vital Signs: Vital Signs: Last Vital Signs Temp 98.9 F 03/14/23 14:33 Pulse 111 H 03/14/23 14:33 Resp 22 H 03/14/23 14:33 BP 125/85 03/14/23 14:33 Pulse Ox 100 03/14/23 14:33 O2 Del Method Nasal Cannula 03/14/23 14:33 O2 Flow Rate 2 03/14/23 14:33 BMI result Body Mass Index 21.0 Const: Other: General lying in bed in no distress Neck supple Regular rate and rhythm, S1-S2 heard Respiratory diminished breath sound no wheeze or rhonchi Abdomen soft non tender, no guarding, no rigidity, G-tube in place Neuro awake, alert and oriented to self, place, time and person ; left he miparesis Psych: Normal mood Objective Data Active Medications Acetaminophen (Acetaminophen 325 Mg Tablet) 650 mg PO Q6H PRN PRN Reason: Pain, Mild (Pain Scale 1-3) Acetaminophen (Acetaminophen Supp 650 Mg Supp.Rect) 650 mg PA Q6H PRN PRN Reason: Pain, Mild (Pain Scale 1-3) Albuterol Sulfate (Albuterol Sulfate 90 Mcg 8 Gm Inhaler) 1 puff INHALE QID PRN PRN Reason: Shortness Of Breath Clonazepam (Clonazepam 1 Mg Tablet) 1 mg G-TUBE TID [facility] [place] Last Admin: 03/13/23 22:18 Dose: 1 mg Documented By: KEVON Clozapine (Clozapine 25 Mg Tablet) 50 mg G-TUBE DAILY [facility] [place] Last Admin: 03/13/23 10:13 Dose: 50 mg Documented By: RAFFI Gabapentin (Gabapentin 100 Mg Capsule) 100 mg G-TUBE BID [facility] [place] Last Admin: 03/13/23 21:05 Dose: 100 mg Documented By: KEVON Potassium Cl/Dextrose/Lact Ringer's (Kcl 20 Meq In 5 % Dex/Lact Rin) 20 meq in 1,000 mls @ 100 mls/hr IVCONT .Q10H [facility] [place] Last Admin: 03/14/23 10:42 Dose: 100 mls/hr Documented By: ELISEO Melatonin (Melatonin 3 Mg Tablet) 6 mg PO BEDTIME PRN PRN Reason: Insomnia Last Admin: 03/13/23 21:05 Dose: 6 mg Documented By: KEVON Ondansetron HCl (Ondansetron Hcl 4 Mg/2 Ml Vial) 4 mg IVPUSH Q8H PRN PRN Reason: Nausea and Vomiting Last Admin: 03/13/23 21:05 Dose: 4 mg Documented By: KEVON Pharmacy Consult (Consult Rx Perform Med Rec) 1 each MISCELLANE ONCE PRN PRN Reason: Consult order Pharmacy Consult (Consult Rx Vancomycin Dosing) 1 each MISCELLANE DAILY PRN PRN Reason: Consult order Quetiapine Fumarate (Quetiapine Fumarate 100 Mg Tablet) 100 mg G-TUBE BEDTIME DEANNA Last Admin: 03/13/23 21:14 Dose: 100 mg Documented By: KEVON Sertraline HCl (Sertraline Hcl 100 Mg Tablet) 200 mg G-TUBE DAILY [facility]AN[facility] Sodium Biphosphate/Sodium Phosphate (Sodium Phosphate,[place]-Dibasic 133 Ml Enema) 133 ml PA DAILY PRN PRN Reason: severe constipation Sodium Chloride (0.9 % Sodium Chloride Flush 3 Ml Syringe) 3 ml IVFLUSH QSHIFT DEANNA Last Admin: 03/14/23 07:34 Dose: Not Given Documented By: ELISEO Non-Admin Reason: IV Running Labs 03/14/23 05:37 03/14/23 05:37 Labs: Laboratory Results - last 24 hr 03/14/23 03/14/23 05:37 05:37 MCV 85.2 MCH 25.9 L MCHC 30.4 L RDW 17.4 H Plt Count 352 MPV 10.4 Absolute Nucleated RBC 0.000 Nucleated RBC % (auto) 0.0 Anion Gap 12 Estim Creat Clear Calc 77.3 Estimated GFR > 60 Random Glucose 121 H Calcium 8.6 Microbiology Microbiology Results: Microbiology 03/13/23 01:41 Blood Culture - Preliminary Blood - Venous No growth after 24 hours. 03/13/23 01:39 Blood Culture - Preliminary Blood - Venous No growth after 24 hours. 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 #.? Intractable vomiting NPO on IV fluids, IV Protonix, no recurrent episodes of vomiting, barium swallow showed mucosal irregularity of the proximal and mid thoracic esophagus and dilatation, stricture of the distal thoracic esophagus and under filling of the proximal stomach. patient underwent upper endoscopy that showed grade C esophagitis and esophageal strictures underwent dilatation. will change to by mouth PPI x8 weeks as per GI rec. will resume G-tube feedings obtain nutrition consultation to change feedings during the daytime with head of the bed elevated hematocrit drop from 41-32.2 , above? transfusion threshold?, follow H&H. #.? Imaging with upper lobe opacities in bilateral lungs.? Patient without cough or respiratory symptoms. Low concern for pneumonia. hold abx. #.? Dysphagia due to CVA.? resume G-tube feedings #.? Mood disorder.? Continue? Klonopin, Neurontin, Seroquel and Zoloft. DVT prophylaxis:? SCDs Full code patient will need continued inpatient hospitalization for monitoring for intractable vomiting and close post esophageal dilatation and resumption of feedings. of he Time Spent With Patient Time: Total time managing care of this patient today ____ minutes. Quality Stroke Does the patient have a stroke diagnosis?: No VTE Prior VTE?: No VTE Risk Level:: Medical - moderate - high VTE Device Contraindication: N/A - Device Ordered VTE Drug Contraindication: Treatment Not Indicated
--- NOTE | 2023-03-14 15:00 | MHC.CLN ---
CONSULT PER HT 62 WT 52.1KG IBW 110#+/-10% PT IS 104% IBW INDICATES ADEQUATE WT FOR HT; BMI 21 PT IS CURRENTLY NPO PT TO START DAYTIME TF-PT PREVIOUSLY WITH G-TUBE FEEDING FOR NUTRITION SUPPORT RECOMMEND OSMOLITE 1.5 AT MAX GOAL RATE 85ML/HR CONTINUOUS X 12 HOURS (6AM-6PM) WITH 240ML FREE WATER FLUSHES Q 6 HRS TO PROVIDE 1530KCALS (30KCALS/KG), 64G PROTEIN (1.2G/KG), 1737ML TOTAL WATER FROM FORMULA AND FLUSHES (33ML/KG) START FORMULA AT 20ML/HR AND INCREASE BY 10ML Q 1 HR UNTIL MAX GOAL IS ACHIEVED MONITOR TOLERANCE, RESIDUALS AND LYTES FULL CLINICAL NUTRITION ASSESSMENT TO FOLLOW
[2023-03-14] MEDS: clonazePAM 1 MG TABLET G-TUBE ×2 (16:13→20:44)
[2023-03-14] MEDS: Omeprazole/Na Bicarb Oral Susp 20 MG/10 ML UD Cup 40 MG PO (16:14)
[2023-03-14] MEDS: 0.9 % Sodium Chloride Flush 3 ML SYRINGE IVFLUSH (20:44)
[2023-03-14] MEDS: Gabapentin 100 MG CAPSULE G-TUBE (20:44)
[2023-03-14] MEDS: QUEtiapine Fumarate 100 MG TABLET G-TUBE (20:44)
[2023-03-15 04:00] VITALS: BP 107/59; PULSE 59; RESP 18; TEMP 36.7; O2SAT 98
[2023-03-15] MEDS: KCl 20 mEq in 5 % Dex/Lact Rin 20 MEQ/1,000 ML IV.SOLN 100 MEQ IVCONT (06:15)
[2023-03-15] MEDS: Omeprazole/Na Bicarb Oral Susp 20 MG/10 ML UD Cup 40 MG PO ×2 (06:15→15:17)
--- NOTE | 2023-03-15 07:15 | P.CDIM_ITS ---
PROVIDER RESPONSE TEXT: To clarify, the appropriate diagnosis supported by the clinical indicators: Hypernatremia QUERY TEXT: PHYSICIAN'S DOCUMENTATION REQUEST Date of Query: 03/13/2023 11:24 AM EDT Patient Name: Valentina Gonzalez Admit Date: 03/13/2023 Dear Stas Cabrera, A review of the medical record indicates additional documentation may be needed. Please review below and update the documentation accordingly. Clinical Indicators: LAB FINDINGS: sodium 146 H Based on the above, is there a diagnosis that correlates to the lab findings: Hypernatremia Other please specify Other (explain)Clinically unable to determine (explain)Thank you, Rosanne Khan, CCS, CDIS Use of terms such as suspected, likely, concern for, or probable (associated with a specific diagnosi s that is being evaluated, monitored, or treated as if it exists) are acceptable and can be coded in the inpatient se tting, when documented at the time of discharge. Please use your independent medical judgment in providing your response. THIS QUERY IS PART OF THE PERMANENT MEDICAL RECORD
[2023-03-15 07:18] VITALS: BP 137/64; PULSE 53; RESP 18; TEMP 37.1; O2SAT 99
[2023-03-15 07:34] LABS: Hematocrit 30.7 % (37.0-47.0); Hemoglobin 9.3 g/dl (12.0-16.0); Mean Corpuscular HGB Conc 30.3 g/dl (31.0-35.0); Mean Corpuscular Hemoglobin 25.5 pg (27.0-33.0); Mean Corpuscular Volume 84.1 fL (80.0-98.0); Mean Platelet Volume 10.2 fL (9.4-12.3); Platelet Count 314 X10*3/uL (160-400); Red Blood Count 3.65 X10*6/uL (4.20-5.50); Red Cell Distribution Width 16.9 % (11.0-16.0); White Blood Count 5.6 X10*3/uL (4.8-10.8)
[2023-03-15 07:45] LABS: Anion Gap 11 (12-20); Blood Urea Nitrogen 6 mg/dL (9-16); Calcium 8.5 mg/dL (8.4-10.2); Carbon Dioxide 26 mmol/L (22-29); Chloride 109 mmol/L (96-108); Creatinine Clr Calc Pharmacy 85.5; Estimated Glomerular Filt Rate > 60; Glucose Random 103 mg/dL (60-115); Potassium 3.4 mmol/L (3.3-5.1); Sodium 143 mmol/L (135-145)
--- NOTE | 2023-03-15 08:56 | MHC.CM.PN ---
IMM 03/15. Pt admitted with vomiting. Pt lives at [facility], has a left prosthetic leg and uses a walker. D/C plan to return to [facility] via BLS/[facility] when medically cleared. HCP on file. PCP: none listed, will clarify with [facility] Covid vax: x 5
[2023-03-15] MEDS: Sertraline HCL 100 MG TABLET 200 MG G-TUBE (09:24)
[2023-03-15] MEDS: clonazePAM 1 MG TABLET G-TUBE ×3 (09:24→21:51)
[2023-03-15] MEDS: cloZAPine 25 MG TABLET 50 MG G-TUBE (09:24)
[2023-03-15] MEDS: Gabapentin 100 MG CAPSULE G-TUBE ×2 (09:24→21:51)
[2023-03-15 11:47] VITALS: BMI 21.0
--- NOTE | 2023-03-15 12:06 | MHC.CLN ---
F/U PT WITH GTUBE FOR NUTRITION SUPPORT SEE FULL CLINICAL NUTRITION ASSESSMENT PT TO RECEIVE OSMOLITE 1.5 AT MAX GAOL RATE 85ML/HR WITH 240ML FWF Q 6 HRS TO PROVIDE 1530KCALS (30KCALS/KG), 64G PROTEIN (1.2G/KG), 1737ML TOTAL WATER FROM FORMULA AND FLUSHES (33ML/KG) PT CURRENTLY ON 40ML/HR AND TOLERATING PER NSG-SLOWLY INCREASING TO GOAL MONITOR TOLERANCE, RESIDUALS AND LYTES
--- NOTE | 2023-03-15 13:54 | HO.POSTANES ---
Post Anesthesia Evaluation Post Anesthesia Evaluation Date of Service: 03/15/23 Vital Signs: Vital Signs Temp Pulse Resp BP Pulse Ox O2 Del Method 03/15/23 07:40 Room Air 03/15/23 07:18 98.8 F 53 18 137/64 99 Room Air 03/15/23 04:00 98.0 F 59 18 107/59 L 98 Room Air Anesthesia: General Mental Status: Awake Pain Control: Satisfactory Nausea/Vomiting: None Hydration: Adequate Anesthesia-Related Issues: No Anes. Related Issues
[2023-03-15 14:46] VITALS: BP 98/51; PULSE 92; RESP 20; TEMP 36.7; O2SAT 98
[2023-03-15] MEDS: 0.9 % Sodium Chloride Flush 3 ML SYRINGE IVFLUSH ×2 (15:18→21:52)
--- NOTE | 2023-03-15 15:22 | P.PNIM_ITS ---
Subjective Subjective Date of Service: 03/15/23 Interval History: Feeling tired, denies nausea, no vomiting, no abdominal pain G-tube feeding started this morning, as per patient only drink juices and water and no solid foods, no acute events overnight. Review of Systems All other system reviewed and negative. Physical Exam Vital Signs: Vital Signs: Last Vital Signs Temp 98.0 F 03/15/23 14:46 Pulse 92 03/15/23 14:46 Resp 20 03/15/23 14:46 BP 98/51 L 03/15/23 14:46 Pulse Ox 98 03/15/23 14:46 O2 Del Method Room Air 03/15/23 14:46 O2 Flow Rate 2 03/14/23 15:06 BMI result Body Mass Index 21.0 Const: Other: General lying in bed in no distress Neck supple Regular rate and rhythm, S1-S2 heard Respiratory? diminished breath sound no wheeze or rhonchi Abdomen soft non tender, no guarding, no rigidity, G-tube in place Neuro awake, alert and oriented to self, place, time and person ; left hemiparesis Psych: Normal mood Extremities left BKA Right lower extremity no edema Objective Data Active Medications Acetaminophen (Acetaminophen 325 Mg Tablet) 650 mg PO Q6H PRN PRN Reason: Pain, Mild (Pain Scale 1-3) Acetaminophen (Acetaminophen Supp 650 Mg Supp.Rect) 650 mg ID Q6H PRN PRN Reason: Pain, Mild (Pain Scale 1-3) Albuterol Sulfate (Albuterol Sulfate 90 Mcg 8 Gm Inhaler) 1 puff INHALE QID PRN PRN Reason: Shortness Of Breath Clonazepam (Clonazepam 1 Mg Tablet) 1 mg G-TUBE TID [facility] Last Admin: 03/15/23 15:16 Dose: 1 mg Documented By: KRISTI Clozapine (Clozapine 25 Mg Tablet) 50 mg G-TUBE DAILY [facility] Last Admin: 03/15/23 09:24 Dose: 50 mg Documented By: KM Gabapentin (Gabapentin 100 Mg Capsule) 100 mg G-TUBE BID [facility] Last Admin: 03/15/23 09:24 Dose: 100 mg Documented By: KM Melatonin (Melatonin 3 Mg Tablet) 6 mg PO BEDTIME PRN PRN Reason: Insomnia Last Admin: 03/13/23 21:05 Dose: 6 mg Documented By: KEVON Omeprazole (Omeprazole/Na Bicarb Oral Susp 20 Mg/10 Ml Ud Cup) 40 mg PO BID@0630,1630 [facility] Last Admin: 03/15/23 15:17 Dose: 40 mg Documented By: KRISTI Ondansetron HCl (Ondansetron Hcl 4 Mg/2 Ml Vial) 4 mg IVPUSH Q8H PRN PRN Reason: Nausea and Vomiting Last Admin: 03/13/23 21:05 Dose: 4 mg Documented By: KEVON Pharmacy Consult (Consult Rx Perform Med Rec) 1 each MISCELLANE ONCE PRN PRN Reason: Consult order Pharmacy Consult (Consult Rx Vancomycin Dosing) 1 each MISCELLANE DAILY PRN PRN Reason: Consult order Quetiapine Fumarate (Quetiapine Fumarate 100 Mg Tablet) 100 mg G-TUBE BEDTIME [facility] Last Admin: 03/14/23 20:44 Dose: 100 mg Documented By: ABRAM Sertraline HCl (Sertraline Hcl 100 Mg Tablet) 200 mg G-TUBE DAILY [facility] Last Admin: 03/15/23 09:24 Dose: 200 mg Documented By: KM Sodium Biphosphate/Sodium Phosphate (Sodium Phosphate,[place]-Dibasic 133 Ml Enema) 133 ml ID DAILY PRN PRN Reason: severe constipation Sodium Chloride (0.9 % Sodium Chloride Flush 3 Ml Syringe) 3 ml IVFLUSH QSHIFT [facility] Last Admin: 03/15/23 15:18 Dose: 3 ml Documented By: KRISTI Labs 03/15/23 07:07 03/15/23 07:07 Labs: Laboratory Results - last 24 hr 03/15/23 03/15/23 07:07 07:07 MCV 84.1 MCH 25.5 L MCHC 30.3 L RDW 16.9 H Plt Count 314 MPV 10.2 Absolute Nucleated RBC 0.000 Nucleated RBC % (auto) 0.0 Anion Gap 11 L Estim Creat Clear Calc 85.5 Estimated GFR > 60 Random Glucose 103 Calcium 8.5 Microbiology Microbiology Results: Microbiology 03/13/23 01:41 Blood Culture - Preliminary Blood - Venous No growth after 48 hours. 03/13/23 01:39 Blood Culture - Preliminary Blood - Venous No growth after 48 hours. Assessment and Plan (1) Vomiting: Status: Acute (2) Esophagitis: Status: Acute Plan 57-year-old female with pertinent history of CVA with residual left-sided hemiparesis, dysphagia due to CVA, gastroesophageal reflux disease, mood d isorder who was sent to the emergency department for evaluation of multiple episodes of vomiting. #.? Intractable vomiting no recurrent episodes of vomiting, no abdominal pain barium swallow showed mucosal irregularity of the proximal and mid thoracic esophagus and dilatation, stricture of the distal thoracic esophagus and under filling of the proximal stomach. patient underwent upper endoscopy that showed grade C esophagitis and esophageal strictures underwent dilatation. Placed on by mouth PPI x8 weeks as per GI rec. G-tube feedings changed to daytime will keep head of the bed elevated to 30-40 5 degrees angle # acute normocytic anemia due to acute GI blood loss hematocrit drop from 41-30.7 , above? transfusion threshold?, follow H&H. Continue PPI. #.? Imaging with upper lobe opacities in bilateral lungs.? Patient without cough or respiratory symptoms. Low concern for pneumonia. hold abx. #.? Dysphagia due to CVA.? resume G-tube feedings #.? Mood disorder.? Continue? Klonopin, Neurontin, Seroquel and Zoloft. DVT prophylaxis:? SCDs Full code patient will need continued inpatient hospitalization for monitoring for intractable vomiting and close post esophageal dilatation and resumption of feedings. Time Spent With Patient Time: Total time managing care of this patient today ____ minutes. Quality Stroke Does the patient have a stroke diagnosis?: No VTE Prior VTE?: No VTE Risk Level:: Medical - moderate - high VTE Device Contraindication: N/A - Device Ordered VTE Drug Contraindication: Treatment Not Indicated
[2023-03-15 18:54] VITALS: BP 95/53; PULSE 73; RESP 20; TEMP 36.1; O2SAT 98
[2023-03-15] MEDS: Melatonin 3 MG TABLET 6 MG PO (21:52)
[2023-03-15] MEDS: QUEtiapine Fumarate 100 MG TABLET G-TUBE (21:52)
[2023-03-16 03:39] VITALS: BP 96/50; PULSE 55; RESP 18; TEMP 36.4; O2SAT 96
[2023-03-16 06:38] LABS: Hematocrit 32.8 % (37.0-47.0); Hemoglobin 10.2 g/dl (12.0-16.0); Mean Corpuscular HGB Conc 31.1 g/dl (31.0-35.0); Mean Corpuscular Hemoglobin 25.8 pg (27.0-33.0); Mean Platelet Volume 10.2 fL (9.4-12.3); Platelet Count 319 X10*3/uL (160-400); Red Blood Count 3.95 X10*6/uL (4.20-5.50); Red Cell Distribution Width 16.7 % (11.0-16.0); White Blood Count 6.3 X10*3/uL (4.8-10.8)
[2023-03-16] MEDS: Omeprazole/Na Bicarb Oral Susp 20 MG/10 ML UD Cup 40 MG PO (07:02)
[2023-03-16 07:03] VITALS: BP 104/65; PULSE 57; RESP 18; TEMP 36.3; O2SAT 95
[2023-03-16 09:00] VITALS: O2SAT 98
[2023-03-16] MEDS: Sertraline HCL 100 MG TABLET 200 MG G-TUBE (09:14)
[2023-03-16] MEDS: clonazePAM 1 MG TABLET G-TUBE (09:14)
[2023-03-16] MEDS: 0.9 % Sodium Chloride Flush 3 ML SYRINGE IVFLUSH (09:14)
[2023-03-16] MEDS: cloZAPine 25 MG TABLET 50 MG G-TUBE (09:14)
[2023-03-16] MEDS: Gabapentin 100 MG CAPSULE G-TUBE (09:14)
--- NOTE | 2023-03-16 10:55 | PM.DS ---
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 Patient states she had multiple episodes of vomiting on the day of presentation, too many to count.? Patient states her last few episodes were black in color.? Denies shahzad blood in vomitus.? She denies fever, chills, cough.? Does not take anything by mouth.? Has a G-tube for feeds.? No chest discomfort, palpitations, shortness of breath, abdominal pain, changes in urinary or bowel habits. In the emergency department, imaging with severe esophagitis with possible esophageal stricture. Hospital course: 57-year-old female with pertinent history of CVA with residual left-sided hemiparesis, dysphagia due to CVA, gastroesophageal reflux disease, mood disorder who was sent to the emergency department for evaluation of multiple episodes of vomiting. #.? Intractable nausea and vomiting, patient admitted to medical floor treated with IV fluids, antiemetics and kept NPO, patient had no recurrent episodes of vomiting, no abdominal pain, barium swallow showed mucosal irregularity of the proximal and mid thoracic esophagus and dilatation, stricture of the distal thoracic esophagus and? under filling of the proximal stomach, subsequently underwent upper endoscopy that showed grade C? esophagitis and esophageal strictures underwent dilatation. GI recommend PO omeprazole 40mg BID x 8 weeks and then once daily, liquid carafate 10ml QID Repeat EGD in 8-10 weeks to assess for healing (and dilation, if desired by the pt) Avoid NSAIDs. Keep HOB elevated at 30-45 degrees at the time of administering tube feeds as well as at least for 1-2 hours after it Avoid night time tube feeds, which can also worsen reflux Therefore patient placed on daytime feedings from 06:00 to 18:00 patient can have small amount of juice during daytime in sitting position avoid caffeine # ? acute normocytic anemia due to GI blood loss hematocrit drop from 41-32 , above? transfusion threshold, no recurrent hematemesis did not require blood transfusion #.? Chest x-ray showed upper lobe opacities in bilateral lungs, patient asymptomatic did not require antibiotic treatment #.? Dysphagia due to CVA.? Recommend to continue G-tube feedings during daytime?. #.? Mood disorder.? Continue? Klonopin, Neurontin, Seroquel and Zoloft. Time Spent with Patient Time attestation: Total time managing care of this patient today ____ minutes. Discharge coordination time: Greater than 30 minutes Quality: Safe Use of Opioids Does Pt have an Active Cancer Diagnosis on the Problem List?: No Quality: Stroke Does the patient have a stroke diagnosis?: No Physical Exam Vital Signs: Vital Signs: Last Vital Signs Temp 97.4 F 03/16/23 07:03 Pulse 57 03/16/23 07:03 Resp 18 03/16/23 07:03 BP 104/65 03/16/23 07:03 Pulse Ox 98 03/16/23 09:00 O2 Del Method Room Air 03/16/23 09:00 O2 Flow Rate 2 03/14/23 15:06 BMI result Body Mass Index 21.0 Const: Other: General lying in bed in no distress Neck supple Regular rate and rhythm, S1-S2 heard Respiratory? diminished breath sound no wheeze or rhonchi Abdomen soft non tender, no guarding, no rigidity, G-tube in place Neuro awake, alert and oriented to self, place, time and person ; left hemiparesis Psych: Normal mood Extremities left BKA Right lower extremity no edema DS: Data Data Completed and Pending Labs on day of discharge: Laboratory Results - last 24 hr 03/16/23 06:03 WBC 6.3 RBC 3.95 L Hgb 10.2 L Hct 32.8 L MCV 83.0 MCH 25.8 L MCHC 31.1 RDW 16.7 H Plt Count 319 MPV 10.2 Absolute Nucleated RBC 0.000 Nucleated RBC % (auto) 0.0 Preliminary micro results at discharge 03/13/23 01:41 Blood Culture - Preliminary Blood - Venous No growth after 48 hours. 03/13/23 01:39 Blood Culture - Preliminary Blood - Venous No growth after 48 hours. Discharge Plan Discharge Anticipated Discharge Date/Time: 03/16/23 07:34 Patient Disposition: er [facility] Discharge Diagnosis: Intractable nausea vomiting Esophagitis Esophageal stricture Acute normocytic blood loss anemia Referrals: NORMA DAMON [Primary Care Provider] - 1 Week Discharge Medications: New Konvomep 2-84 mg/mL Suspension For Reconstitution 40 mg PO BID@0630,1630 Qty: 300 0RF Continued docusate sodium 50 mg/5 mL Liquid 100 mg feeding tube BEDTIME atorvastatin 80 mg Tablet 80 mg feeding tube DAILY sucralfate 100 mg/mL Suspension 10 ml PO QID Rx Instructions: use in feeding tube, mix with 30 mls of water clonazepam 1 mg Tablet 1 mg feeding tube TID midodrine 5 mg Tablet 15 mg PO TID Rx Instructions: do not give last dose of day after 6PM or within 4 hrs of bedtime multivitamin with minerals Liquid 10 ml feeding tube DAILY sennosides [senna] 8.8 mg/5 mL Syrup 10 ml feeding tube BEDTIME PRN (Reason: Constipation) Rx Instructions: mix with 30 ml of water quetiapine 100 mg Tablet 100 mg feeding tube BEDTIME Rx Instructions: crush with 30 ml of water and administer potassium chloride 20 mEq/15 mL Liquid 40 meq feeding tube DAILY bisacodyl 10 mg Suppository 10 mg WI DAILY PRN (Reason: Constipation) Fleet Enema 19-7 gram/118 mL Enema 118 ml WI DAILY PRN (Reason: severe constipation) albuterol sulfate 90 mcg/actuation Hfa Aerosol Inhaler 1 inh INHALATION QID PRN (Reason: Shortness Of Breath) sertraline 20 mg/mL Concentrate 200 mg feeding tube DAILY Rx Instructions: mix with 30 ml of water clozapine [Clozaril] 50 mg Tablet 50 mg feeding tube DAILY gabapentin 250 mg/5 mL (5 mL) Solution 100 mg feeding tube BID Discontinued aspirin [Aspir-81] 81 mg Tablet,Delayed Release (Dr/Ec) 81 mg feeding tube DAILY lansoprazole 30 mg Tablet,Disintegrat, Delay Rel 30 mg feeding tube BID Discharge Orders: Discharge Order (Routine); Ordered 03/16/23 Ordered By: Stas Cabrera Diet: g tube diet Activity on Discharge: As tolerated Stand Alone Forms: Patient Portal Discharge page Care Plan Goals: Nausea of vomiting resolved was likely due to esophageal stricture Continue feedings daytime 06:00 to 18:00 Repeat EGD in 8-10 weeks to assess for healing (and dilation, if desired by the pt) Avoid NSAIDs. Keep HOB elevated at 30-45 degrees at the time of administering tube feeds as well as at least for 1-2 hours after it Avoid night time tube feeds, which can also worsen reflux Health Concerns: Continue all home medication avoid all NSAIDs hold aspirin Plan of Treatment: Outpatient follow-up with Gastroenterology for repeat endoscopy in 8-10 weeks Outpatient follow-up with PCP Assessment: As above
--- NOTE | 2023-03-16 11:11 | MHC.CM.PN ---
Pt medically cleared for D/C back to [facility] today. Transportation booked via BLS/[facility] at 12pm today.
== END 2023-03-16 12:12 | disposition skilled nursing facility (03) | DRG 369 ==
LOC: HO.ED 03-13 02:55 → HO.EDOVER 03-13 03:28 → HO.IMC 03-14 15:12
PROVIDERS: Internal Medicine; Admitting Provider Student in an Organized Health Care Education/Training Program; Emergency Provider Student in an Organized Health Care Education/Training Program; PCP Emergency Medicine; Visit Provider Hospitalist
PROC: 0DJ08ZZ Inspection of Upper Intestinal Tract, Via Natural or Artificial Opening Endoscopic (ICD-10-PCS; CPT 43235; principal; 2023-03-14 12:30)
DX: K21.01 Gastro-esophageal reflux disease with esophagitis, with bleeding (principal); D62 Acute posthemorrhagic anemia; I69.354 Hemiplegia and hemiparesis following cerebral infarction affecting left non-dominant side; E87.0 Hyperosmolality and hypernatremia; I69.391 Dysphagia following cerebral infarction; F39 Unspecified mood [affective] disorder; R13.10 Dysphagia, unspecified; Z93.1 Gastrostomy status; Z88.2 Allergy status to sulfonamides; Z79.899 Other long term (current) drug therapy
CPT/HCPCS: 36415; 71260; 74018; 74177; 74220; 80048; 80053; 81001; 82272; 83605; 84484; 85014; 85018; 85025; 85027; 85610; 87040; 93005; 99284; 99285; C1726; J2250; J2405; J2543; J3010; J3371; Q9967

== ENCOUNTER → 2023-03-12 23:06 | Outpatient (BNV) | payer MEDICARE, MEDICAID, SELFPAY | PROVIDERS: Admitting Provider Student in an Organized Health Care Education/Training Program; Emergency Provider Student in an Organized Health Care Education/Training Program; Visit Provider Internal Medicine Cardiovascular Disease | DX: R00.0 Tachycardia, unspecified (principal) | CPT/HCPCS: 93010 ==

== ENCOUNTER 2023-03-13 03:16 | Outpatient (BNV) | payer MEDICARE, MEDICAID, SELFPAY | END 2023-03-13 11:25 | PROVIDERS: Admitting Provider Student in an Organized Health Care Education/Training Program; Emergency Provider Student in an Organized Health Care Education/Training Program; Visit Provider Radiology Diagnostic Radiology | DX: K22.2 Esophageal obstruction (principal) | CPT/HCPCS: 74221 ==

== ENCOUNTER → 2023-03-13 03:16 | Outpatient (BNV) | payer MEDICARE, MEDICAID, SELFPAY | PROVIDERS: Admitting Provider Student in an Organized Health Care Education/Training Program; Emergency Provider Student in an Organized Health Care Education/Training Program; Visit Provider Student in an Organized Health Care Education/Training Program | DX: K20.90 Esophagitis, unspecified without bleeding (principal); R11.10 Vomiting, unspecified | CPT/HCPCS: 99222; 99233; 99239; 99499 ==

== ENCOUNTER → 2023-03-13 03:16 | Outpatient (BNV) | payer MEDICARE, MEDICAID, SELFPAY | PROVIDERS: Admitting Provider Student in an Organized Health Care Education/Training Program; Emergency Provider Student in an Organized Health Care Education/Training Program; Visit Provider Internal Medicine | DX: K22.2 Esophageal obstruction (principal); K21.00 Gastro-esophageal reflux disease with esophagitis, without bleeding | CPT/HCPCS: 43249; 99232 ==

== ENCOUNTER 2023-04-11 10:25 | Outpatient (REF) | payer OTHER, SELFPAY ==
--- NOTE | ~2023-04-11 | MM_ITS ---
EXAMINATION: MM SCREENING DIGITAL BREAST TOMOSYNTHESIS, BILATERAL CLINICAL INFORMATION: Screening. Asymptomatic. COMPARISON: Mammography: No prior studies available. Patient does not remember where or when last mammogram was. 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 Best images possible. TECHNIQUE: Digital breast tomosynthesis is performed in both the craniocaudal and mediolateral oblique views along with computer-aided detection (CAD). Synthesized 2D images are generated from the tomosynthesis. FINDINGS: The breasts are heterogeneously dense, which may obscure small masses (ACR BI-RADS breast composition Category c). Parenchyma is heterogeneously dense and somewhat nodular bilaterally. There are no suspicious masses, suspicious grouped calcifications, or areas of architectural distortion. MM/MM tomosynthesis screening BI IMPRESSION: No mammographic evidence of malignancy. ASSESSMENT: BI-RADS BI-RADS 1 - Negative RECOMMENDATION: Routine annual mammography screening. 1 year F/U This examination should not preclude the clinical evaluation of a suspicious palpable abnormality. This patient's information was entered into a reminder system with a target due date for their next mammogram.
== END 2023-04-11 10:26 | disposition home or self-care (01) ==
LOC: HO.MAMMO 10:25
PROVIDERS: Visit Provider Emergency Medicine
DX: Z12.31 Encounter for screening mammogram for malignant neoplasm of breast (principal)
CPT/HCPCS: 77063; 77067

== ENCOUNTER → 2023-04-11 10:30 | Outpatient (BNV) | payer MEDICARE, MEDICAID, SELFPAY | PROVIDERS: Visit Provider Radiology Diagnostic Radiology | DX: Z12.31 Encounter for screening mammogram for malignant neoplasm of breast (principal) | CPT/HCPCS: 77063; 77067 ==